=== PATIENT | male | born 1970 | race Caucasian/White ===

== ENCOUNTER 2020-04-25 08:42 | Day surgery (SDC) | payer OTHER, SELFPAY ==
[2020-04-25] VITALS (11 sets, daily range): BP systolic 128–175; BP diastolic 87–102; PULSE 81–105; RESP 13–18; TEMP 36.2–36.9; O2SAT 94–99; BMI 43.0
--- NOTE | 2020-04-25 08:58 | W.ED.MALEGU ---
HPI - Male Genitourinary General: Chief complaint: Urogenital-Male Stated complaint: Knot/Pain on Inner Leg Time Seen by Provider: 04/25/20 08:45 History of Present Illness: HPI Narrative: Patient is a 49-year-old male comes to the ED with scrotal pain and mass. Patient says last night he started feeling some pain down in his scrotum. Today he woke up and he had scrotal mass on the right of testes. Any touch or pressure causes pain. Denies any past scrotal pain or swelling. He rates pain a 9 out of 10 if there is any pressure on right scrotal area. Denies any fever, chills, abdominal pain, bladder or bowel symptoms. Associated symptoms: Deny dysuria, hematuria, nausea or vomiting Review of Systems Const: Denies: fever(s), chills or fatigue Eyes: Denies: change in vision or eye discomfort ENMT: Denies: throat pain, odynophagia, nasal discharge or nasal congestion Card: Denies: chest pain, palpitations, edema, swelling of feet/ankles, dyspnea on exertion or orthopnea Resp: Denies: dyspnea, productive cough or non-productive cough GI: Denies: abdominal pain, nausea, vomiting, diarrhea, constipation or hematochezia : Reports: genital pain (Scrotal pain) and scrotal swelling; Denies: flank pain, difficulty urinating, dysuria or hematuria Musc: Denies: neck pain, back pain or extremity swelling Skin/Breast: Denies: rash or new lesions Neuro: Denies: headache(s), numbness in extremities or weakness in extremities PFS ED PFSH: Medical History No active medical problems Surgical History No significant past surgical history Physical Exam Const: COMMON NORMALS: no acute distress, patient oriented x3, healthy appearing and alert GENERAL APPEARANCE: cooperative and comfortable HENMT: COMMON NORMALS: normocephalic HEAD & SCALP: normocephalic MOUTH: Normal oral and palatal mucosa present THROAT: posterior oropharynx normal and uvula midline Neck/C-Spine: COMMON NORMALS: supple GENERAL: Yes normal visual inspection Resp: COMMON NORMALS: normal respiratory effort, No retractions, No use of accessory muscles and clear to auscultation bilaterally AUSCULTATION: clear to auscultation bilaterally Cardio: COMMON NORMALS: regular rate, regular rhythm, S1 normal heart sound present, S2 normal heart sound present, No gallops present (Cardio), No clicks present (Cardio), No murmurs present (Cardio) and Peripheral pulses 2+ throughout RATE: regular rate RHYTHM: regular rhythm HEART SOUNDS: S1 normal heart sound present and S2 normal heart sound present PERIPHERAL PULSES: Peripheral pulses 2+ throughout GI: COMMON NORMALS: Normal to inspection, nondistended, normoactive bowel sounds present, Soft to palpation, non-tender and no masses PALPATION: Yes Soft to palpation : COMMON NORMALS: Yes no CVA tenderness BLADDER/KIDNEY EXAM: Yes no CVA tenderness PENIS: normal penis SCROTUM: Yes Scrotal tenderness present and Yes scrotal mass Scrotal mass laterality: right (Mass is at right inguinal canal. involves superior aspect of scrotum) erythematous, firm and tender TESTES: Yes testicular lie normal, No testicular swelling, No testicular tenderness and No testicular mass Back/Pelvis: COMMON NORMALS: no CVA tenderness Extremity: COMMON NORMALS: normal to inspection Neuro: COMMON NORMALS: patient oriented x3 and moves all extremities SENSORIUM/ORIENTATION: Yes alert Skin: GENERAL SKIN EXAM: dry skin Course ED course: Dr. Han came down and evaluated patient's abscess and he decided patient will be taken to outpatient surgery today. Consultations: Consultation #1: I contacted Dr. Han about patient case and the ultrasound findings. Ask that he will come down here to the ED to evaluate the abscess and make a decision from there. Consultation #2: I contacted Dr. Waddell first and discussed patient case with him. He took a look at the ultrasound findings and he thought this was a general surgery issue since ultrasound findings did not show any testicular or epididymitis issues. Vital Signs: Vital signs: Vital Signs Temperature 98.5 F 04/25/20 08:48 Pulse Rate 93 04/25/20 11:42 Respiratory Rate 14 04/25/20 11:09 Blood Pressure 136/88 04/25/20 11:42 Pulse Oximetry 96 04/25/20 11:42 MDM - Male MDM Narrative: Medical decision making narrative: Patient is a 49-year-old male comes to the ED with a right inguinal mass and tenderness. Exam shows an erythematous and firm tender mass palpated in the right inguinal canal. Testicles were normal with no tenderness or swelling. White blood cell count 7.5. Patient had a glucose of 440 but rest of CMP was unremarkable. UA showed no signs of any UTI. Ultrasound of scrotum showed abscess in right inguinal canal. I contacted Dr. Han about patient case and he said he was going to come down to the ED to evaluate. After evaluation Dr. Han will take patient to outpatient surgery today straight from the ED. Discussed the plan with patient he understood and agreed. Lab Data: Attestation: I reviewed the patient's lab results. Labs: Lab Results 04/25/20 04/25/20 04/25/20 Range/Units 09:20 09:20 09:40 WBC 7.5 (4.0-10.0) 10^3/ uL RBC 5.25 (4.1-5.3) 10^6/u L Hgb 15.9 (11.7-16.6) g/dL Hct 47.0 (42.0-52.0) % MCV 89.5 (80-94) fL MCH 30.3 (28.0-34.0) pg MCHC 33.8 (30.0-36.0) g/dL RDW 12.2 (12.1-15.1) % Plt Count 187 (130-400) 10^3/c mm MPV 10.3 (7.4-10.4) fL Neut % (Auto) 67.3 % Lymph % (Auto) 22.2 % [place] % (Auto) 8.1 % Eos % (Auto) 1.6 % Baso % (Auto) 0.5 % Neut # (Auto) 5.04 (1.8-7.7) 10^3/u L Lymph # (Auto) 1.7 (0.8-4.8) 10^3/u L [place] # (Auto) 0.6 (0.2-0.9) 10^3/u L Eos # (Auto) 0.1 (0.0-0.8) 10^3/u L Baso # (Auto) 0.0 (0.0-0.1) 10^3/u L Nucleated RBC % (a uto) 0 % Nucleated RBCs # 0.0 /100WBC Sodium 134 L (136-145) mmol/L Potassium 4.2 (3.5-5.1) mmol/L Chloride 98 (98-107) mmol/L Carbon Dioxide 24 (22-29) mmol/L Anion Gap 16.2 (5-19) BUN 11 (6-20) mg/dL Creatinine 0.9 (0.7-1.2) mg/dL GFR Calculation 90.4 (90-130) mL/min Glucose 440 H (65-115) mg/dL Calculated Osmolal ity 296 H (285-295) mOsm/k g Calcium 9.6 (8.5-10.5) mg/dL Total Bilirubin 0.6 (0.15-1.2) mg/dL AST 11 (0-40) U/L ALT 24 (0-41) U/L Alkaline Phosphata se 77 (40-130) IU/L Total Protein 6.8 (6.6-8.7) g/dL Albumin 4.2 (3.5-5.2) g/dL Globulin 2.6 (1.3-4.6) g/dL Lipase 23 (13-60) U/L Urine Color Yellow (Yellow) Urine Appearance Clear (CLEAR) Urine pH 6.5 (5-7) Ur Specific Gravit y 1.010 (1.005-1.030) Urine Protein Neg (Negative) Urine Glucose (UA) 4+ H (Normal) Urine Ketones Negative (Negative) Urine Blood Neg (Negative) Urine Nitrate Negative (Negative) Urine Bilirubin Neg (Negative) Urine Urobilinogen Norm (Negative) mg/dL Ur Leukocyte Lory ase Negative (Negative) Urine RBC None (0-2) /hpf Urine WBC None (0-5) /hpf Ur Squamous Epith Cells None (0-5) /hpf Amorphous Sediment Not Reportable Urine Bacteria None (NONE) /hpf Imaging Data: US: Attestation: I personally reviewed and interpreted this imaging study as follows: Radiologist's impression: [address] [address] Ultrasound Report Signed Patient: Joesph Damian Unit #: [id number] : 1970 Age/Sex: 49 / M ADM Date: 04/25/20 Loc: ER Room/Bed: Attending Dr: Ordering Provider/Ordering MD: Darek Wynn Date of Service: 04/25/20 Procedure(s): US scrotum 60121 Accession Number(s): [id number] Report Number: [id number] WS: [id number] TESTICULAR ULTRASOUND HISTORY: scrotal mass with pain COMPARISON: None available. TECHNIQUE: Real-time and color Doppler imaging or utilized to perform a testicular ultrasound. Right testicle: 4.5 cm x 2.8 cm x 2.7 cm. Normal size and echogenicity. No mass or torsion. Normal color Doppler is present throughout. Systolic and diastolic velocities are both present. No significant hydrocele. Right epididymis: Epididymis is heterogeneous but no increased vascularity. Prominent varicocele on the RIGHT. Left testicle: 4.7 cm x 2.7 cm x 2.2 cm. Normal size and echogenicity. No mass or torsion. Normal color Doppler is present throughout. Systolic and diastolic velocities are both present. No significant hydrocele. Left epididymis: Epididymal cyst versus spermatocele with a maximum diameter of 5 mm. No increased vascularity. Prominent varicosities. There is a complex collection along the RIGHT inguinal canal in the area of concern. There is some increased vascularity present. This area of concern measures 4.3 x 3.2 x 1.9 cm. US/US scrotum [id number] IMPRESSION: 1. Complex fluid collection in the RIGHT inguinal region. Most concerning for developing abscess. Collection measures 4.3 x 3.2 x 1.9 cm. 2. Bilateral varicoceles. 3. No testicular mass. Dictated By: Nelly Wagner DO Signed By: Nelly Wagner DO Signed Date/Time: 04/25/20 1017 DD/ 1011 Discharge Plan Discharge Clinical Impression: Abscess of groin, right Condition: Stable Discharge Orders: Discharge Order (Routine); Ordered 04/25/20 Ordered By: Darek Wynn Discharge Diet: As Directed Discharge Activity: Limit activity as instructed Coding Level of Care Code ED Cardiac Monitor for Chg Fwd Exam Comprehensive
--- NOTE | 2020-04-25 09:09 | US_ITS ---
WS: [id number] TESTICULAR ULTRASOUND HISTORY: scrotal mass with pain COMPARISON: None available. TECHNIQUE: Real-time and color Doppler imaging or utilized to perform a testicular ultrasound. Right testicle: 4.5 cm x 2.8 cm x 2.7 cm. Normal size and echogenicity. No mass or torsion. Normal color Doppler is present throughout. Systolic and diastolic velocities are both present. No significant hydrocele. Right epididymis: Epididymis is heterogeneous but no increased vascularity. Prominent varicocele on the RIGHT. Left testicle: 4.7 cm x 2.7 cm x 2.2 cm. Normal size and echogenicity. No mass or torsion. Normal color Doppler is present throughout. Systolic and diastolic velocities are both present. No significant hydrocele. Left epididymis: Epididymal cyst versus spermatocele with a maximum diameter of 5 mm. No increased va scularity. Prominent varicosities. There is a complex collection along the RIGHT inguinal canal in the area of concern. There is some in creased vascularity present. This area of concern measures 4.3 x 3.2 x 1.9 cm. US/US scrotum [id number] IMPRESSION: 1. Complex fluid collection in the RIGHT inguinal region. Most concerning for developing abscess. Collection measures 4.3 x 3.2 x 1.9 cm. 2. Bilateral varicoceles. 3. No testicular mass.
[2020-04-25 09:28] LABS: Basophils % 0.5 %; Eosinophils # 0.1 10^3/uL (0.0-0.8); Eosinophils % 1.6 %; Hemoglobin 15.9 g/dL (11.7-16.6); Lymphocytes # 1.7 10^3/uL (0.8-4.8); Lymphocytes % 22.2 %; Mean Corpuscular HGB Conc 33.8 g/dL (30.0-36.0); Mean Corpuscular Hemoglobin 30.3 pg (28.0-34.0); Mean Corpuscular Volume 89.5 fL (80-94); Mean Platelet Volume 10.3 fL (7.4-10.4); Monocytes # 0.6 10^3/uL (0.2-0.9); Monocytes % 8.1 %; Neutrophils # 5.04 10^3/uL (1.8-7.7); Neutrophils % 67.3 %; Nucleated Red Blood Cells % 0 %; Platelet Count 187 10^3/cmm (130-400); Red Blood Count 5.25 10^6/uL (4.1-5.3); Red Cell Distribution Width 12.2 % (12.1-15.1); White Blood Count 7.5 10^3/uL (4.0-10.0)
[2020-04-25] MEDS: HYDROmorphone 1 mg/mL INJ 1 mL IVP (09:33)
[2020-04-25] MEDS: sodium chloride 0.9% 1,000 ML 999 ML IV (09:33)
[2020-04-25] MEDS: ondansetron 2 mg/ML SDV 2 mL 4 MG IVP (09:33)
[2020-04-25 09:50] LABS: Alanine Aminotransferase 24 U/L (0-41); Albumin Level 4.2 g/dL (3.5-5.2); Alkaline Phosphatase 77 IU/L (40-130); Anion Gap 16.2 (5-19); Aspartate Amino Transferase 11 U/L (0-40); Blood Urea Nitrogen 11 mg/dL (6-20); Calcium 9.6 mg/dL (8.5-10.5); Carbon Dioxide 24 mmol/L (22-29); Chloride 98 mmol/L (98-107); Globulin 2.6 g/dL (1.3-4.6); Glomerular Filtration Rate 90.4 mL/min (90-130); Glucose 440 mg/dL (65-115); Lipase 23 U/L (13-60); Osmolality Calculated 296 mOsm/kg (285-295); Potassium 4.2 mmol/L (3.5-5.1); Sodium 134 mmol/L (136-145); Total Bilirubin 0.6 mg/dL (0.15-1.2); Total Protein 6.8 g/dL (6.6-8.7)
[2020-04-25 10:04] LABS: Urine Color Yellow (Yellow)
[2020-04-25 10:07] LABS: Add Urine Culture? No; Bilirubin Urine Neg (Negative); Blood Urine Neg (Negative); Glucose Urine UA 4+ (Normal); Ketones Urine Negative (Negative); Leukocyte Esterase Urine Negative (Negative); Nitrate Urine Negative (Negative); Protein Urine Neg (Negative); Urine Appearance Clear (CLEAR); Urobilinogen Urine Norm (Negative); pH Urine 6.5 (5-7)
[2020-04-25] MEDS: insulin regular-human 100 units/1 mL 10 UNIT IVP (11:17)
--- NOTE | 2020-04-25 11:31 | PM.HP ---
Providers/Chief Complaint Admitting Physician: General Surgery Nii Han MD Chief Complaint: Knot/Pain on Inner Leg History of Present Illness Joesph Damian is a 49 year old male who noticed that he was developing some pain on the right side of his upper scrotum several days ago. He denies any history of trauma to the area and denies any history of any problems there. He says he started developing more of a knot which prompted him to come into the emergency department. And any ultrasound revealed an underlying fluid collection that seem to be in the area of the inguinal canal. He denies any fevers or chills. He has not been aware of any drainage, etc., but admits he cannot even see the area due to his body habitus. Dr. Waddell from urology was contacted but thought since the fluid seem to involve the inguinal canal a general surgeon may be more of an appropriate choice for therapy. Review of Systems General: Reports: 10 or more systems reviewed and unremarkable except in HPI and below Const: Denies: fever(s) : Reports: scrotal swelling Medications/Allergies Home Medications Medication Instructions Recorded Confirmed Last Taken Type No Known Home Medications 04/25/20 04/25/20 Unknown History Allergies Allergy/AdvReac Type Severity Reaction Status Date / Time No Known Allergies Allergy Verified 04/25/20 08:47 PFSH Acute PFSH: Medical History (Updated 04/25/20 @ 11:35 by Nii Han MD) No active medical problems Surgical History (Updated 04/25/20 @ 11:35 by Nii Han MD) No significant past surgical history Vitals/I&O/Wt Last Vital Signs Temp 98.5 F 04/25/20 08:48 Pulse 92 04/25/20 11:09 Resp 14 04/25/20 11:09 BP 144/90 04/25/20 11:09 Pulse Ox 98 04/25/20 11:09 Weight last 48 hrs Weight 300 lb Physical Exam Narrative: EXAM NARRATIVE: The patient was encountered in the emergency department. He does not appear to be in any acute distress. The pupils are equal. No carotid bruits are heard. The lungs are clear. The heart is regular. The abdomen is morbidly obese but is soft. The patient has erythema and induration with an overlying superficial open wound on the right side of the scrotum somewhat superiorly. There is no erythema that extends higher that I can see. The patient's very tender in that region. The extremities reveal no edema. Neurologically he appears to be grossly intact. Data : 04/25/20 09:20 04/25/20 09:20 US: Radiologist's impression: Scrotal abscess 04/25/2020 IMPRESSION: 1. Complex fluid collection in the RIGHT inguinal region. Most concerning for developing abscess. Collection measures 4.3 x 3.2 x 1.9 cm. 2. Bilateral varicoceles. 3. No testicular mass. A&P Assessment and plan (1) Scrotal abscess: Clinically the patient appears to have more of an abscess that started in the upper aspect of the right hemiscrotum as opposed to the inguinal canal itself. I told him that regardless I think this area needs to be incised and drained. The procedure was discussed with him in some detail. He seems to understand and is agreeable to proceeding. The patient ate breakfast around 730 this morning. It sounds like it is probably going to be at least a couple hours before we can even get into the operating room, but he will be kept n.p.o. until then. Status: Acute Attestations Medical Necessity Statement*: I told the patient that I think this fluid collection can probably be drained safely as an outpatient. He would like to go home today if at all possible. Coding Level of Care Code Acute Network Design Architect for Becky Noonan Diagnoses Scrotal abscess N49.2
--- NOTE | 2020-04-25 13:56 | ANES.PREANE2 ---
Pre-Anesthetic Assessment Pre-Anesthetic Assessment: Height/Weight: Height 1.78 m Weight 136.078 kg Temp Pulse Resp BP Pulse Ox 97.7 F 95 18 151/96 97 04/25/20 13:55 04/25/20 13:55 04/25/20 13:55 04/25/20 13:55 04/25/20 13:55 Preop Diagnosis: scrotal abscess Proposed Procedure: Operation Date: 04/25/20 14:00 Proposed Procedures p Incision And Drainage scrotal abscess(Not Applicable) - Nii Han MD Was Beta Arelis taken within 24 hours: N/A Last intake: Intake Last Liquid Date 04/18/20 Last Liquid Time 07:30 Last Solid Date 04/25/20 Last Solid Time 07:30 Social: Social History: No alcohol and No tobacco Exam: Pre-Anes Outpt Exam: alert, oriented x 3, clear to auscultation bilaterally and regular rate & rhythm Additional Exam Findings (including area of procedure): Ate a breakfast burrito and coffee at 7:30am. Airway: Submandibular: WNL Cervical ROM: WNL MP: 1 Dentition: Full History/ROS: Other Pulmonary: Pulmonary: None reported CV/HEM: CV/HEM: None reported : : None reported Hepatic: Hepatic: None reported GI: GI: None reported Metabolic: Metabolic: Morbid obesity Musc/skel: Musc/skel: None reported Neuropsych: Neuropsych: None reported Anesthetic Plan: ASA status: 2E Anesthesia: General Risk of > 500 ml blood loss (7ml/kg in children): No PFSH Anesthesia PFSH: Medical History No active medical problems Surgical History No significant past surgical history Data Anesthesia CBC & Chem 7: 04/25/20 09:20 04/25/20 09:20 Other Labs: Laboratory Results - last 48 hr 04/25/20 04/25/20 04/25/20 09:20 09:20 09:40 WBC 7.5 RBC 5.25 Hgb 15.9 Hct 47.0 MCV 89.5 MCH 30.3 MCHC 33.8 RDW 12.2 Plt Count 187 MPV 10.3 Neut % (Auto) 67.3 Lymph % (Auto) 22.2 [place] % (Auto) 8.1 Eos % (Auto) 1.6 Baso % (Auto) 0.5 Neut # (Auto) 5.04 Lymph # (Auto) 1.7 [place] # (Auto) 0.6 Eos # (Auto) 0.1 Baso # (Auto) 0.0 Nucleated RBC % (auto) 0 Nucleated RBCs # 0.0 Sodium 134 L Potassium 4.2 Chloride 98 Carbon Dioxide 24 Anion Gap 16.2 BUN 11 Creatinine 0.9 GFR Calculation 90.4 Glucose 440 H Calculated Osmolality 296 H Calcium 9.6 Total Bilirubin 0.6 AST 11 ALT 24 Alkaline Phosphatase 77 Total Protein 6.8 Albumin 4.2 Globulin 2.6 Lipase 23 Urine Color Yellow Urine Appearance Clear Urine pH 6.5 Ur Specific [place] 1.010 Urine Protein Neg Urine Glucose (UA) 4+ H Urine Ketones Negative Urine Blood Neg Urine Nitrate Negative Urine Bilirubin Neg Urine Urobilinogen Norm Ur Leukocyte Esterase Negative Urine RBC None Urine WBC None Ur Squamous Epith Cells None Amorphous Sediment Not Reportable Urine Bacteria None Cardiac Studies: No Data to Display
[2020-04-25] MEDS: sodium chloride 0.9% 1,000 ML 30 ML IV ×2 (14:22)
--- NOTE | 2020-04-25 14:24 | P.OP_ITS ---
Operative Report Date of procedure: April 25, 2020 Pre-op Diagnosis: scrotal abscess Post-op diagnosis: same Procedure Done: Incision and drainage of right scrotal abscess. Specimens removed/disposition: Aerobic and anaerobic cultures. Surgeon: Nii Han Anesthesia: General Estimated blood loss (mL): 5 Condition: stable Disposition: PACU Procedure: The patient was brought to the operating room and was placed in a rosales pine position on the operating room table. General endotracheal anesthesia was induced. The genitalia were prepped and draped in a sterile fashion. The patient had just begun draining some purulent material from a small opening on the right side of the scrotum superiorly. Both aerobic and anaerobic cultures were taken. The genitalia were then prepped and draped in a sterile fashion. An incision was carried out over the draining wound and a superficial abscess cavity was entered. All of the purulent material was suctioned out and the wound was then extensively irrigated with saline. The wound was finally packed with a strip of half-inch Nu Gauze. A fluff dressing was applied and the patient was taken to the recovery area in stable condition postoperatively.
--- NOTE | 2020-04-25 14:37 | P.PCN_ITS ---
PACU note PACU note: VSS, Good respiratory effort, report to FOREST ENGINEER Post-Anesthesia Exam: awake
--- NOTE | 2020-04-25 14:37 | PM.PACU ---
PACU note PACU note: VSS, Good respiratory effort, report to MIDDLE SCHOOL DIRECTOR Post-Anesthesia Exam: awake
--- NOTE | 2020-04-25 15:09 | ANE.PACU2 ---
Inpatient post-anesthesia follow up: Airway intact: Yes Vital signs: Temperature 97.1 F Pulse Rate [Left] 105 Pulse Rate 83 Respiratory Rate 13 Blood Pressure [Le ft Arm] 175/102 Blood Pressure 128/90 Pulse Oximetry 97 Oxygen Delivery Me thod Room Air Oxygen Flow Rate 6 Fraction of Inspir ed Oxygen Hydration adequate: Yes Nausea and vomiting: No Pain level: 1 Mental status: Baseline
== END 2020-04-25 15:23 | disposition home or self-care (01) ==
LOC: ER 11:35 → OPS 11:43
PROVIDERS: Emergency Provider Physician Assistant; Visit Provider Surgery
PROC: (CPT 55100; principal; 2020-04-25 14:00)
DX: N49.2 Inflammatory disorders of scrotum (principal); E66.01 Morbid (severe) obesity due to excess calories; Z68.41 Body mass index [BMI] 40.0-44.9, adult
CPT/HCPCS: 55100; 12345; 76870; 80053; 81001; 83690; 85025; 87070; 87075; 87077; 87205; 96365; 99283; J0330; J0690; J1100; J1170; J1815; J2405; J2704; J3010; J3490; J7030

== ENCOUNTER 2021-05-06 16:54 | Emergency (ER) | payer OTHER, SELFPAY ==
[2021-05-06 17:40] VITALS: BP 173/108; PULSE 100; RESP 16; TEMP 38.1; O2SAT 90
--- NOTE | 2021-05-06 18:41 | XRR_ITS ---
PROCEDURE INFORMATION: Exam: XR Chest Exam date and time: 05/06/2021 6:41 PM Age: 50 years old Clinical indication: Patient HX: Cough; Blood pressure issues and blood sugar issues since diagnosed with covid 1 week ago TECHNIQUE: Imaging protocol: XR of the chest. Views: 1 view. COMPARISON: No relevant prior studies available. FINDINGS: Lungs: Bibasilar multifocal ground-glass and airspace opacities are noted compatible with pneumonic infiltrates greatest in the left lower lobe. Pulmonary vascularity is within normal limits. Pleural spaces: There is a probable small left pleural effusion. There is no evidence of pneumothorax. Heart/Mediastinum: The heart is enlarged. Bones/joints: No acute abnormality. XR/XR chest 1V portable [id number] IMPRESSION: Bibasilar multifocal ground-glass and airspace opacities are noted compatible with pneumonic infiltrates greatest in the left lower lobe.
[2021-05-06 21:45] VITALS: BP 164/86; PULSE 101; RESP 22; O2SAT 92
--- NOTE | 2021-05-06 21:51 | ECG_ITS ---
[facility] Test Date: 2021-05-06 Pat Name: Joesph Damian Department: Room: Gender: Male German Tutor: : 1970 Requested By: Darek Wynn Order Number: [id number] Olga MD: Mehran Luciano M.D. Measurements Intervals [place] Rate: 96 P: 38 TX: 186 QRS: 8 QRSD: 107 T: 30 QT: 346 QTc: 437 Interpretive Statements SINUS RHYTHM LOW QRS VOLTAGE IN PRECORDIAL LEADS [QRS DEFLECTION < 1.0 mV IN CHEST LEADS] No previous ECG available for comparison Electronically Signed On 05-07-2021 20:16:16 SWAHILI TEACHER by Mehran Luciano M.D. [id number]
--- NOTE | 2021-05-06 21:53 | W.ED.COVID ---
HPI - COVID General: Chief Complaint: COVID symptoms Stated Complaint: COVID 2 WKS AGO;LOW O2;HIGH BLOOD SUGAR(271) Time Seen by Provider: 05/06/21 21:24 Triage information: Has fever, cough or shortness of breath. Exposure to COVID + person last 14 days History of Present Illness: HPI Narrative: Patient is a 50-year-old male comes to the ED with shortness of breath. He states he has a past medical history of diabetes type 2 but he has not started taking any medications for that. Patient tested positive for COVID-19 at [facility] on May 01. He says that he was having upper respiratory symptoms that started around April 24. He initially was having symptoms of a cough some congestion but those have cleared up. His symptoms now for the past week have been worsening shortness of breath, nausea and vomiting and some chest pain that he describes as a chest pressure. Patient checked his oxygen levels at home when he was at around 80% O2 saturation. Patient is not on any supplemental oxygen at home. States he has not been able to keep any food down and can only keep down water. Chest pain he describes as a chest pressure and that worsening chest pain has been going on for approximately a week, but he has been having this kind of chest pressure on and off for the past year. Patient says he has not received the COVID-19 vaccination. COVID 19 common symptoms: positive dyspnea, nausea and vomiting; negative fever(s), chills, non-productive cough, productive cough, fatigue, headache(s), throat pain, nasal congestion or diarrhea COVID 19 other sytmptoms: positive chest pain COVID Results: SARS-CoV-2 Antigen (Rapid) Negative (Negative) 05/06/21 22:55 05/06/21 Review of Systems Const: Denies: fever(s), chills or fatigue Eyes: Denies: change in vision or eye discomfort ENMT: Denies: throat pain, odynophagia, nasal discharge or nasal congestion Card: Reports: chest pain; Denies: palpitations, edema, swelling of feet/ankles, dyspnea on exertion or orthopnea Resp: Reports: dyspnea; Denies: productive cough or non-productive cough GI: Reports: nausea and vomiting; Denies: abdominal pain, diarrhea, constipation or hematochezia : Denies: flank pain, difficulty urinating, dysuria or hematuria Musc: Denies: neck pain, back pain or extremity swelling Skin/Breast: Denies: rash or new lesions Neuro: Denies: headache(s), numbness in extremities or weakness in extremities PFSH ED PFSH: Medical History No active medical problems Surgical History No significant past surgical history Physical Exam Const: COMMON NORMALS: patient oriented x3 and alert GENERAL APPEARANCE: cooperative and comfortable NUTRITIONAL APPEARANCE: obese HENMT: COMMON NORMALS: normocephalic HEAD & SCALP: normocephalic MOUTH: moist mucous membranes abnormal Details: parched THROAT: posterior oropharynx normal and uvula midline Eye: COMMON NORMALS: Equal, round and reactive pupils present PUPIL: Yes Equal, round and reactive pupils present Neck/C-Spine: COMMON NORMALS: supple GENERAL: Yes normal visual inspection Resp: COMMON NORMALS: normal respiratory effort, No retractions and No use of accessory muscles AUSCULTATION: crackles Laterality: bilateral (Crackling heard at bilateral bases) Cardio: COMMON NORMALS: regular rate, regular rhythm, S1 normal heart sound present, S2 normal heart sound present, No gallops present (Cardio), No clicks present (Cardio), No murmurs present (Cardio) and Peripheral pulses 2+ throughout RATE: regular rate RHYTHM: regular rhythm HEART SOUNDS: S1 normal heart sound present and S2 normal heart sound present PERIPHERAL PULSES: Peripheral pulses 2+ throughout GI: COMMON NORMALS: Normal to inspection, nondistended, normoactive bowel sounds present, Soft to palpation, non-tender and no masses PALPATION: Yes Soft to palpation : COMMON NORMALS: Yes no CVA tenderness BLADDER/KIDNEY EXAM: Yes no CVA tenderness Back/Pelvis: COMMON NORMALS: no CVA tenderness Extremity: COMMON NORMALS: normal to inspection Neuro: COMMON NORMALS: patient oriented x3 and moves all extremities SENSORIUM/ORIENTATION: Yes alert Skin: GENERAL SKIN EXAM: dry skin Course Vital Signs: Vital signs: Vital Signs Temperature 100.5 F H 05/06/21 17:40 Pulse Rate 93 05/06/21 22:55 Respiratory Rate 20 H 05/06/21 22:55 Blood Pressure 165/81 05/06/21 22:55 Pulse Oximetry 92 05/06/21 22:55 MDM - COVID MDM Narrative: Medical decision making narrative: Patient is a 50-year-old male who comes to the ED with Covid symptoms. He has had the symptoms now for over 2 weeks. He tested positive for COVID-19 at [facility] on May 01. He is continued to have worsening shortness of breath and today is at home pulse ox was reading in the 80% range. Patient not on any oxygen at home. Patient was put on 3 L of oxygen here in the ED and his O2 sat has been around 92%. The rest of his vitals are stable. Exam of patient shows some crackling at the lower lung solares bilaterally, but rest of exam is benign. CBC unremarkable. Glucose 311, sodium 129, rest of CMP was unremarkable. Corrected sodium levels due to hyperglycemia shows corrected sodium level of 132-134. Troponin negative. D-dimer elevated at 0.88. Chest x-ray showed Bibasilar multifocal ground-glass and airspace opacities. EKG showed normal sinus rhythm with no ST segment elevation or depression seen. ABG showed pH of 7.43. Lactic 1.9. CTA of chest showed bilateral geographic groundglass opacities consistent with COVID-19 pneumonia. no PE seen. CTA chest did note some severe CAD to the LAD. I placed an order with case management for patient to be referred to cardiology for further follow-up due to CAD findings on CTA of chest. Patient was given 1 L of IV fluids, Zofran and insulin here in the ED. Patient's nausea improved and he is able to take p.o. fluids. I discussed patient case with Dr. Spencer and he thinks patient can go home tonight on oxygen and given strict return to ED precautions. Patient diagnosed with post Covid shortness of breath and COVID-19 pneumonia. He sent home with 3 L of O2 continuously, prednisone and budesonide inhaler. He was told to follow-up with his PCP in 5 to 7 days. He was given strict return to ED precautions. Patient understood and agreed with plan. Lab Data: Attestation: I reviewed the patient's lab results. Labs: Lab Results 05/06/21 05/06/21 05/06/21 21:56 22:55 22:55 WBC 6.7 10^3/uL 10^3/ uL (4.0-10.0) RBC 5.32 10^6/uL H 10 ^6/uL (4.1-5.3) Hgb 16.2 g/dL g/dL (11.7-16.6) Hct 46.4 % % (42.0-52.0) MCV 87.2 fl fl (80-94) MCH 30.5 pg pg (28.0-34.0) MCHC 34.9 g/dL g/dL (30.0-36.0) RDW 12.2 % % (12.1-15.1) Plt Count 155 10^3/cmm 10^3 /cmm (130-400) MPV 10.5 fL H fL (7.4-10.4) Neut % (Auto) 78.2 % % Lymph % (Auto) 14.1 % % [place] % (Auto) 6.9 % % Eos % (Auto) 0.0 % % Baso % (Auto) 0.3 % % Neut # (Auto) 5.20 10^3/uL 10^3 /uL (1.8-7.7) Lymph # (Auto) 0.9 10^3/uL 10^3/ uL (0.8-4.8) [place] # (Auto) 0.5 10^3/uL 10^3/ uL (0.2-0.9) Eos # (Auto) 0.0 10^3/uL 10^3/ uL (0.0-0.8) Baso # (Auto) 0.0 10^3/uL 10^3/ uL (0.0-0.1) Nucleated RBC % (a uto) 0 % % Nucleated RBCs # 0.0 /100WBC /100W BC D-Dimer Specimen Type Arterial Sample Site Radial, left ABG pH 7.43 (7.35-7.45) ABG pCO2 30.1 mmHg L mmHg (35-45) ABG pO2 65.5 mmHg L mmHg (80.0-100.0) ABG HCO3 20.0 mmol/L L mmo l/L (22-26) ABG O2 Saturation 94.4 ABG Base Excess -2.9 mmol/L L mmo l/L (-2.0-2.0) Lance Test Pos A-a O2 Gradient 5.9 mmHg mmHg (5-10) Hematocrit 51.0 % % (42-52) Hgb O2 Saturation 93.2 % L % (95-100) Carboxyhemoglobin 1.2 %THgb %THgb (0.4-20.1) Methemoglobin 0.1 % L % (0.4-1.5) Total Hemoglobin 16.6 g/dL g/dL (14-18) Sodium 128.0 mmol/L L mm ol/L 129 mmol/L L mmol /L (131-143) (136-145) Potassium 4.4 mmol/L mmol/L 4.9 mmol/L mmol/L (3.5-5.0) (3.5-5.1) Glucose 343.0 mg/dL H mg/ dL 311 mg/dL H mg/dL (70-115) (65-115) Ionized Calcium 1.2 mmol/L mmol/L (1.1-1.4) O2 Delivery Device Nc O2 Liters/Min 3.0 % % Health Claims Examiner ID Buttr Chloride 89 mmol/L L mmol/ L (98-107) Carbon Dioxide 20 mmol/L L mmol/ L (22-29) Anion Gap 24.9 H (5-19) BUN 21 mg/dL H mg/dL (6-20) Creatinine 0.9 mg/dL mg/dL (0.7-1.2) GFR Calculation 90.1 mL/min mL/mi n (90-130) Calculated Osmolal ity 283 mOsm/kg L mOs m/kg (285-295) Lactic Acid Calcium 8.5 mg/dL mg/dL (8.5-10.5) Ferritin 2086 ng/mL H ng/m L (30-400) Total Bilirubin 0.6 mg/dL mg/dL (0.15-1.2) AST 29 U/L U/L (0-40) ALT 22 U/L U/L (0-41) Alkaline Phosphata se 51 IU/L IU/L (40-130) Troponin T Baselin e Troponin T 120 Min [place] Delta Troponin T NT-Pro-B Natriuret Pep 12 pg/mL pg/mL (0-125) Total Protein 7.0 g/dL g/dL (6.6-8.7) Albumin 3.7 g/dL g/dL (3.5-5.2) Globulin 3.3 g/dL g/dL (1.3-4.6) Procalcitonin 0.28 ng/mL ng/mL (0-0.5) SARS-CoV-2 Ag (Rap id) 05/06/21 05/06/21 05/06/21 22:55 22:55 22:55 WBC RBC Hgb Hct MCV MCH MCHC RDW Plt Count MPV Neut % (Auto) Lymph % (Auto) [place] % (Auto) Eos % (Auto) Baso % (Auto) Neut # (Auto) Lymph # (Auto) [place] # (Auto) Eos # (Auto) Baso # (Auto) Nucleated RBC % (a uto) Nucleated RBCs # D-Dimer 0.88 ug/mIFEU H u g/mIFEU (0-0.59) Specimen Type Sample Site ABG pH ABG pCO2 ABG pO2 ABG HCO3 ABG O2 Saturation ABG Base Excess Lance Test A-a O2 Gradient Hematocrit Hgb O2 Saturation Carboxyhemoglobin Methemoglobin Total Hemoglobin Sodium Potassium Glucose Ionized Calcium O2 Delivery Device O2 Liters/Min Health Claims Examiner ID Chloride Carbon Dioxide Anion Gap BUN Creatinine GFR Calculation Calculated Osmolal ity Lactic Acid 1.9 mmol/L mmol/L (0.5-2.2) Calcium Ferritin Total Bilirubin AST ALT Alkaline Phosphata se Troponin T Baselin e 8 ng/L ng/L (0-15) Troponin T 120 Min [place] Delta Troponin T NT-Pro-B Natriuret Pep Total Protein Albumin Globulin Procalcitonin SARS-CoV-2 Ag (Rap id) 05/06/21 05/07/21 22:55 01:39 WBC RBC Hgb Hct MCV MCH MCHC RDW Plt Count MPV Neut % (Auto) Lymph % (Auto) [place] % (Auto) Eos % (Auto) Baso % (Auto) Neut # (Auto) Lymph # (Auto) [place] # (Auto) Eos # (Auto) Baso # (Auto) Nucleated RBC % (a uto) Nucleated RBCs # D-Dimer Specimen Type Sample Site ABG pH ABG pCO2 ABG pO2 ABG HCO3 ABG O2 Saturation ABG Base Excess Lance Test A-a O2 Gradient Hematocrit Hgb O2 Saturation Carboxyhemoglobin Methemoglobin Total Hemoglobin Sodium Potassium Glucose Ionized Calcium O2 Delivery Device O2 Liters/Min Health Claims Examiner ID Chloride Carbon Dioxide Anion Gap BUN Creatinine GFR Calculation Calculated Osmolal ity Lactic Acid Calcium Ferritin Total Bilirubin AST ALT Alkaline Phosphata se Troponin T Baselin e Troponin T 120 Min [place] 7.87 ng/L ng/L (0-15) Delta Troponin T -0.13 ABS# L ABS# (0-10) NT-Pro-B Natriuret Pep Total Protein Albumin Globulin Procalcitonin SARS-CoV-2 Ag (Rap id) Negative (Negative) Imaging Data: CXR: Attestation: I personally reviewed and interpreted this imaging study as follows: Radiologist's impression: [facility] [id number] ReportSigned Patient: Joesph Damian #: [id number]: 1970Acct#:[id number]/Sex: 50 / MADM Date: 05/06/21Loc: ERRoom/Bed:Attending Dr: Ordering Provider/Ordering MD: Kathryn Spencer MD Date of Service: 05/06/21 Procedure(s): XR chest 1V portable [id number] Accession Number(s): [id number] Report Number: [id number] PROCEDURE INFORMATION: Exam: XR Chest Exam date and time: 05/06/2021 6:41 PM Age: 50 years old Clinical indication: Patient HX: Cough; Blood pressure issues and blood sugar issues since diagnosed with covid 1 week ago TECHNIQUE: Imaging protocol: XR of the chest. Views: 1 view. COMPARISON: No relevant prior studies available. FINDINGS: Lungs: Bibasilar multifocal ground-glass and airspace opacities are noted compatible with pneumonic infiltrates greatest in the left lower lobe. Pulmonary vascularity is within normal limits. Pleural spaces: There is a probable small left pleural effusion. There is no evidence of pneumothorax. Heart/Mediastinum: The heart is enlarged. Bones/joints: No acute abnormality. XR/XR chest 1V portable [id number] IMPRESSION: Bibasilar multifocal ground-glass and airspace opacities are noted compatible with pneumonic infiltrates greatest in the left lower lobe. Dictated By:Tejas Hammigned By:Arlin Hamm Date/Time:05/06/21 1934DD/ 1841 CTA Chest: Attestation: I personally reviewed and interpreted this imaging study as follows: Radiologist's impression: [address] [address] [address] Scan Report Signed Patient: Joesph Damian Unit #: [id number] : 1970 Age/Sex: 50 / M ADM Date: 05/06/21 Loc: ER Room/Bed: Attending Dr: Ordering Provider/Ordering MD: Darek Wynn Date of Service: 05/07/21 Procedure(s): CT angio chest PE protcl [id number] Accession Number(s): [id number] Report Number: [id number] PROCEDURE INFORMATION: Exam: CTA Chest With Contrast Exam date and time: 05/07/2021 12:02 AM Age: 50 years old Clinical indication: Cough and shortness of breath; Patient HX: Cough with SOB. Elevated d dimer. ; Additional info: SOB, elevated d dimer TECHNIQUE: Imaging protocol: Computed tomographic angiography of the chest with contrast. 3D rendering (Not supervised by radiologist): MIP and/or 3D reconstructed images were created by the technologist. Radiation optimization: All CT scans at this facility use at least one of these dose optimization techniques: automated exposure control; mA and/or kV adjustment per patient size (includes targeted exams where dose is matched to clinical indication); or iterative reconstruction. Contrast material: OMNI 350; Contrast volume: 73 ml; Contrast route: INTRAVENOUS (IV); COMPARISON: CR (CHEST, ) 05/06/2021 6:58 PM RADIATION DOSE METRICS: Total DLP (mGy-cm): 861.95 FINDINGS: Pulmonary arteries: No pulmonary embolus or aortic dissection. Aorta: See Pulmonary arteries finding. Lungs: Bilateral geographic ground-glass opacities with some crazy paving and consolidation consistent with moderate bilateral COVID-19 pneumonia versus other pneumonia. Pleural spaces: Unremarkable. No pneumothorax. No pleural effusion. Heart: Severe calcified LAD coronary artery disease. Lymph nodes: Unremarkable. No enlarged lymph nodes. Liver: Severe fatty infiltration of the liver. Spleen: One or more accessory splenules. 15.2 cm moderate splenomegaly. Bones/joints: Unremarkable. No acute fracture. Soft tissues: Unremarkable. Other findings: Examination is limited secondary to motion artifact. CT/CT angio chest PE protcl [id number] IMPRESSION: 1. Bilateral geographic ground-glass opacities with some crazy paving and consolidation consistent with moderate bilateral COVID-19 pneumonia versus other pneumonia. 2. Severe calcified LAD coronary artery disease. 3. No pulmonary embolus or aortic dissection. 4. Severe fatty infiltration of the liver. 5. 15.2 cm moderate splenomegaly. Dictated By: Jeremias Lucas MD Signed By: Jeremias Lucas MD Signed Date/Time: 05/07/21 0135 DD/ 0002 EKG Data: EKG 1: Attestation: I personally reviewed and interpreted this EKG as follows: EKG interpretation date: 05/06/21 Interpretation: Normal sinus rhythm, 96 bpm, no ST segment elevation or depression seen. COVID Results: SARS-CoV-2 Antigen (Rapid) Negative (Negative) 05/06/21 22:55 05/06/21 Discharge Plan Discharge Patient Disposition: Home Clinical Impression: Post-COVID chronic shortness of breath, Pneumonia due to COVID-19 virus Condition: Stable Prescriptions: New prednisone 20 mg tablet 20 mg PO TID 3 Days Qty: 9 RF: 0 budesonide 90 mcg/actuation aerosol powdr breath activated 1 inh inhalation BID 14 Days Qty: 1 RF: 0 ondansetron 4 mg tablet,disintegrating 4 mg PO Q8H PRN (Reason: nausea and vomiting) Qty: 20 RF: 0 No Action Bactrim DS 800-160 mg tablet 1 tab PO DAILY Qty: 15 RF: 0 Discharge Orders: Discharge ED (Routine); Ordered 05/07/21 Ordered By: Darek Wynn Other Ambulatory Orders: DME: Oxygen (Order) Location: None Selected Ordered By: Darek Wynn Discharge Diet: Regular Discharge Activity: Increase activity as tolerated Patient Instructions: Using Oxygen at Home (ED), Dyspnea (ED), COVID-19 (Coronavirus Disease 2019) (ED), Long COVID (ED) Activity Restrictions/Additional Instructions: Follow-up with medical provider as directed in 5 to 7 days for reevaluation. Wear home O2 at 3 L continuously. Take medications as prescribed. Case management will be contacting you as well to set up an appoint with cardiology for further evaluation as well. Return to the ER or your medical provider if condition worsens. Please read and understand discharge instructions. Thank you for choosing [facility] for your healthcare needs today. Please realize this is an emergency room and that we are providing you with a medical screening exam and this may not be complete and all inclusive of all the testing and or work up that you may need to determine your ailment or severity of your illness. It is very important that you follow up as instructed or that you return to the Emergency Department should you have concerns or if your condition changes or worsens in any way. Coding Level of Care Code ED Hose Suspender Cutter for Becky Noonan Exam Comprehensive
[2021-05-06 21:54] VITALS: O2SAT 93
[2021-05-06 22:08] LABS: ABG PCO2 30.1 mmHg (35-45); ABG PH Result 7.43 (7.35-7.45); Alveolar-Arterial Oxygen Gradi 5.9 mmHg (5-10); Base Excess ABG -2.9 mmol/L (-2.0-2.0); Blood Gas Allen Test Pos; Blood Gas Sample Site Radial, left; Blood Gas Sample Type Arterial; Carboxyhemoglobin 1.2 %THgb (0.4-20.1); HGB O2 Sat 93.2 % (95-100); Ionized Calcium Level - ABG 1.2 mmol/L (1.1-1.4); Methemoglobin 0.1 % (0.4-1.5); Oxygen Device NC; Oxygen Saturation ABG 94.4; PO2 ABG 65.5 mmHg (80.0-100.0); Potassium Level - ABG 4.4 mmol/L (3.5-5.0); Total Hemoglobin 16.6 g/dL (14-18)
[2021-05-06 22:55] VITALS: BP 165/81; PULSE 93; RESP 20; O2SAT 92
[2021-05-06 23:01] LABS: Basophils % 0.3 %; Hematocrit 46.4 % (42.0-52.0); Hemoglobin 16.2 g/dL (11.7-16.6); Lymphocytes # 0.9 10^3/uL (0.8-4.8); Lymphocytes % 14.1 %; Mean Corpuscular HGB Conc 34.9 g/dL (30.0-36.0); Mean Corpuscular Hemoglobin 30.5 pg (28.0-34.0); Mean Corpuscular Volume 87.2 fl (80-94); Mean Platelet Volume 10.5 fL (7.4-10.4); Monocytes # 0.5 10^3/uL (0.2-0.9); Monocytes % 6.9 %; Neutrophils % 78.2 %; Nucleated Red Blood Cells % 0 %; Platelet Count 155 10^3/cmm (130-400); Red Blood Count 5.32 10^6/uL (4.1-5.3); Red Cell Distribution Width 12.2 % (12.1-15.1); White Blood Count 6.7 10^3/uL (4.0-10.0)
[2021-05-06 23:15] LABS: D Dimer 0.88 ug/mIFEU (0-0.59)
[2021-05-06 23:18] LABS: SARS Covid-2 Antigen Negative (Negative); Troponin(5th) Baseline 8 ng/L (0-15)
[2021-05-06 23:19] LABS: Lactic Sepsis W/Reflex 1.9 mmol/L (0.5-2.2)
[2021-05-06 23:27] LABS: NT Pro B Type Natriuretic Pept 12 pg/mL (0-125); Procalcitonin 0.28 ng/mL (0-0.5)
[2021-05-06 23:35] LABS: Slide Review Slide Review Perform
[2021-05-06 23:38] LABS: Alanine Aminotransferase 22 U/L (0-41); Albumin Level 3.7 g/dL (3.5-5.2); Alkaline Phosphatase 51 IU/L (40-130); Anion Gap 24.9 (5-19); Aspartate Amino Transferase 29 U/L (0-40); Blood Urea Nitrogen 21 mg/dL (6-20); Calcium 8.5 mg/dL (8.5-10.5); Carbon Dioxide 20 mmol/L (22-29); Chloride 89 mmol/L (98-107); Globulin 3.3 g/dL (1.3-4.6); Glomerular Filtration Rate 90.1 mL/min (90-130); Glucose 311 mg/dL (65-115); Osmolality Calculated 283 mOsm/kg (285-295); Potassium 4.9 mmol/L (3.5-5.1); Sodium 129 mmol/L (136-145); Total Bilirubin 0.6 mg/dL (0.15-1.2)
[2021-05-06] MEDS: sodium chloride 0.9% 1,000 ML 999 ML IV (23:47)
[2021-05-07] MEDS: ondansetron 2 mg/ML SDV 2 mL 4 MG IVP (00:02)
--- NOTE | 2021-05-07 00:02 | CTR_ITS ---
PROCEDURE INFORMATION: Exam: CTA Chest With Contrast Exam date and time: 05/07/2021 12:02 AM Age: 50 years old Clinical indication: Cough and shortness of breath; Patient HX: Cough with SOB. Elevated d dimer. ; Additional info: SOB, elevated d dimer TECHNIQUE: Imaging protocol: Computed tomographic angiography of the chest with contrast. 3D rendering (Not supervised by radiologist): MIP and/or 3D reconstructed images were created by the technologist. Radiation optimization: All CT scans at this facility use at least one of these dose optimization techniques: automated exposure control; mA and/or kV adjustment per patient size (includes targeted exams where dose is matched to clinical indication); or iterative reconstruction. Contrast material: OMNI 350; Contrast volume: 73 ml; Contrast route: INTRAVENOUS (IV); COMPARISON: CR (CHEST, ) 05/06/2021 6:58 PM RADIATION DOSE METRICS: Total DLP (mGy-cm): 861.95 FINDINGS: Pulmonary arteries: No pulmonary embolus or aortic dissection. Aorta: See Pulmonary arteries finding. Lungs: Bilateral geographic ground-glass opacities with some crazy paving and consolidation consistent with moderate bilateral COVID-19 pneumonia versus other pneumonia. Pleural spaces: Unremarkable. No pneumothorax. No pleural effusion. Heart: Severe calcified LAD coronary artery disease. Lymph nodes: Unremarkable. No enlarged lymph nodes. Liver: Severe fatty infiltration of the liver. Spleen: One or more accessory splenules. 15.2 cm moderate splenomegaly. Bones/joints: Unremarkable. No acute fracture. Soft tissues: Unremarkable. Other findings: Examination is limited secondary to motion artifact. CT/CT angio chest PE protcl [id number] IMPRESSION: 1. Bilateral geographic ground-glass opacities with some crazy paving and consolidation consistent with moderate bilateral COVID-19 pneumonia versus other pneumonia. 2. Severe calcified LAD coronary artery disease. 3. No pulmonary embolus or aortic dissection. 4. Severe fatty infiltration of the liver. 5. 15.2 cm moderate splenomegaly.
[2021-05-07] MEDS: iohexol 350 mg/mL 100 mL Btl IV (01:06)
[2021-05-07] MEDS: insulin regular-human 100 units/1 mL 5 UNIT IVP (01:31)
[2021-05-07 01:36] LABS: Ferritin 2086 ng/mL (30-400)
[2021-05-07 02:03] LABS: Troponin 5 2HR 7.87 ng/L (0-15)
[2021-05-07 02:05] LABS: Troponin 5 2HR Delta -0.13 ABS# (0-10)
[2021-05-07] MEDS: metoclopramide 5 mg/mL SDV 2 mL 10 MG IVP (02:35)
[2021-05-07] MEDS: acetaminophen 500 mg Tablet 1000 MG PO (02:35)
[2021-05-07 02:56] VITALS: BP 165/81; PULSE 85; RESP 20; TEMP 37.2; O2SAT 93
[2021-05-07 02:57] VITALS: BP 145/72; PULSE 85; RESP 20; TEMP 37.2; O2SAT 93
--- NOTE | 2021-05-08 13:59 | DCPLANNER ---
Addendum entered by Rolanda Syed 06/09/21 10:32: Patient had a followup appointment scheduled for 06.01.21 with [facility] - appointment cancelled, patient . Original Note: recreational resort manager had message to schedule a follow up appointment for patient with [facility]. recreational resort manager called [facility], spoke with Deborah Boo, gave clinic patients information. A follow up appointment was scheduled for May at 12:[address] Arrgeuin. recreational resort manager called patient to give him the appointment information, patient was in the ER and was being admitted to hospital. recreational resort manager called [facility] on the in patient side, spoke with Rebeca, she put the appointment information on patients discharge information.
== END 2021-05-07 03:25 | disposition home or self-care (01) ==
PROVIDERS: Emergency Medicine; Emergency Provider Physician Assistant
DX: U07.1 COVID-19 (principal); J12.82 Pneumonia due to coronavirus disease 2019; R06.02 Shortness of breath; U09.9 Post COVID-19 condition, unspecified
CPT/HCPCS: 36600; 71045; 71275; 80051; 80053; 82330; 82728; 82805; 83605; 83880; 84145; 84484; 85025; 85378; 87040; 87426; 93005; 96361; 96374; 96375; 99284; J1815; J2405; J2765; J2930; J7030; Q9967

== ENCOUNTER 2021-05-08 09:18 | Emergency (ER) | payer OTHER, SELFPAY ==
[2021-05-08] VITALS (9 sets, daily range): BP systolic 128–149; BP diastolic 83–87; PULSE 75–97; RESP 18–26; TEMP 36.6; O2SAT 86–94; BMI 43.0
--- NOTE | 2021-05-08 09:56 | XRR_ITS ---
PROCEDURE INFORMATION: Exam: XR Chest Exam date and time: 05/08/2021 9:56 AM Age: 50 years old Clinical indication: Condition or disease; Lung condition and disease; Other: Covid +; Additional info: Covid + TECHNIQUE: Imaging protocol: XR of the chest. Views: 1 view. COMPARISON: CR (CHEST, ) 05/06/2021 6:58 PM FINDINGS: Lungs: Interval worsening of bilateral airspace opacities. No large pleural effusion or pneumothorax. Pleural spaces: See Lungs finding. Heart/Mediastinum: Stable cardiomediastinal silhouette. Bones/joints: No acute osseous injury identified. XR/XR chest 1V portable [id number] IMPRESSION: Interval worsening of multifocal pneumonia.
--- NOTE | 2021-05-08 10:09 | ED_ITS ---
Documented by User: DARIA Silverio 05/08/21 10:12 HPI - SOB/Dyspnea General: Chief Complaint: Shortness of Breath/Dyspnea Stated Complaint: LOW O2/HIGH BLOOD SUGAR/POST COVID RELATED Time Seen by Provider: 05/08/21 09:55 History of Present Illness: HPI Narrative: Patient here post 7 days Covid positive. Symptoms started on 24 April. Now with shortness of breath and high blood sugars. Patient states he was told he had a high blood sugar a year ago when he was up in the high 400s when he had to have surgery done and he never got anything done about his diabetes. Then had COVID here recently and is continue with shortness of breath. Said sugars continue to run high patient said he is lost like 30 pounds here recently complains increased thirst increased urination. Just feels weak. Has been on 4 L since seen here in the ER on the second MD elicited complaint: shortness of breath Pertinent past history: other (Untreated diabetes and post Covid) Onset (ago): week(s) Context: recent illness Timing: progressively worsening Severity: severe Exacerbating factors: exertion Relieving factors: oxygen Associated symptoms: Deny abdominal pain, chest pain, extremity pain, fever(s), nausea or vomiting Treatment prior to arrival: oxygen Review of Systems Const: Denies: fever(s), chills or body aches Eyes: Denies: change in vision or blurry vision ENMT: Denies: throat pain or nasal congestion Card: Denies: chest pain or dyspnea on exertion Resp: Reports: dyspnea and non-productive cough; Denies: productive cough GI: Reports: other (Thirsty); Denies: abdominal pain, nausea or vomiting : Reports: urinary frequency and urinary urgency; Denies: difficulty urinating Musc: Denies: extremity pain Skin/Breast: Denies: rash Neuro: Denies: headache(s) Psych: Denies: anxiety or depression Jimbo/Lymph: Denies: easy bruising PFSH ED PFSH: Medical History No active medical problems Surgical History No significant past surgical history Physical Exam Const: COMMON NORMALS: no acute distress, average body habitus and patient oriented x3 HENMT: COMMON NORMALS: normocephalic HEAD & SCALP: normal to inspection and normocephalic FACE & SINUS: normal facial exam Eye: COMMON NORMALS: conjunctivae normal GENERAL EYE: appearance normal, both eyes and all related structures CONJUNCTIVA: Yes conjunctivae normal Neck/C-Spine: COMMON NORMALS: no JVD Chest: COMMONS NORMALS: normal inspection of the chest Resp: COMMON NORMALS: No retractions EFFORT & INSPECTION: Yes abnormal respiratory pattern and Yes tachypneic AUSCULTATION: rales Cardio: COMMON NORMALS: no JVD, regular rate and regular rhythm RATE: regular rate RHYTHM: regular rhythm GI: COMMON NORMALS: Normal to inspection, nondistended, normoactive bowel sounds present Extremity: COMMON NORMALS: normal to inspection and full ROM Neuro: COMMON NORMALS: patient oriented x3 Course Vital Signs: Vital signs: Vital Signs Temperature 97.8 F 05/08/21 09:45 Pulse Rate 97 05/08/21 09:45 Respiratory Rate 18 05/08/21 09:45 Blood Pressure 147/86 05/08/21 09:45 Pulse Oximetry 86 L 05/08/21 09:45 MDM - SOB/Dyspnea Lab Data: Labs: Lab Results 05/08/21 05/08/21 05/08/21 10:13 10:13 10:13 WBC 13.5 10^3/uL H 10 ^3/uL (4.0-10.0) RBC 5.49 10^6/uL H 10 ^6/uL (4.1-5.3) Hgb 16.4 g/dL g/dL (11.7-16.6) Hct 49.8 % % (42.0-52.0) MCV 90.7 fl fl (80-94) MCH 29.9 pg pg (28.0-34.0) MCHC 32.9 g/dL g/dL (30.0-36.0) RDW 12.4 % % (12.1-15.1) Plt Count 243 10^3/cmm 10^3 /cmm (130-400) MPV 10.3 fL fL (7.4-10.4) Neut % (Auto) 88.2 % % Lymph % (Auto) 6.4 % % Sauk % (Auto) 4.5 % % Eos % (Auto) 0.0 % % Baso % (Auto) 0.2 % % Neut # (Auto) 11.89 10^3/uL H 1 0^3/uL (1.8-7.7) Lymph # (Auto) 0.9 10^3/uL 10^3/ uL (0.8-4.8) Sauk # (Auto) 0.6 10^3/uL 10^3/ uL (0.2-0.9) Eos # (Auto) 0.0 10^3/uL 10^3/ uL (0.0-0.8) Baso # (Auto) 0.0 10^3/uL 10^3/ uL (0.0-0.1) Nucleated RBC % (a uto) 0 % % Nucleated RBCs # 0.0 /100WBC /100W BC D-Dimer 1.76 ug/mIFEU H u g/mIFEU (0-0.59) Specimen Type Sample Site ABG pH ABG pCO2 ABG pO2 ABG HCO3 ABG O2 Saturation ABG Base Excess Lance Test A-a O2 Gradient Hematocrit Hgb O2 Saturation Carboxyhemoglobin Methemoglobin Total Hemoglobin Ionized Calcium O2 Delivery Device O2 Liters/Min Shore Working Supervisor ID Sodium 133 mmol/L L mmol /L (136-145) Potassium 4.5 mmol/L mmol/L (3.5-5.1) Chloride 94 mmol/L L mmol/ L (98-107) Carbon Dioxide 10 mmol/L L mmol/ L (22-29) Anion Gap 33.5 H (5-19) BUN 27 mg/dL H mg/dL (6-20) Creatinine 1.1 mg/dL mg/dL (0.7-1.2) GFR Calculation 71.4 mL/min L mL/ min (90-130) Glucose 350 mg/dL H mg/dL (65-115) Calculated Osmolal ity 295 mOsm/kg mOsm/ kg (285-295) Calcium 8.5 mg/dL mg/dL (8.5-10.5) Total Bilirubin 0.5 mg/dL mg/dL (0.15-1.2) AST 26 U/L U/L (0-40) ALT 21 U/L U/L (0-41) Alkaline Phosphata se 62 IU/L IU/L (40-130) Total Protein 7.2 g/dL g/dL (6.6-8.7) Albumin 3.6 g/dL g/dL (3.5-5.2) Globulin 3.6 g/dL g/dL (1.3-4.6) Procalcitonin 0.49 ng/mL ng/mL (0-0.5) Serum Ketones 05/08/21 05/08/21 10:13 10:48 WBC RBC Hgb Hct MCV MCH MCHC RDW Plt Count MPV Neut % (Auto) Lymph % (Auto) Sauk % (Auto) Eos % (Auto) Baso % (Auto) Neut # (Auto) Lymph # (Auto) Sauk # (Auto) Eos # (Auto) Baso # (Auto) Nucleated RBC % (a uto) Nucleated RBCs # D-Dimer Specimen Type Arterial Sample Site Radial, right ABG pH 7.21 L (7.35-7.45) ABG pCO2 18.6 mmHg L* mmHg (35-45) ABG pO2 60.1 mmHg L mmHg (80.0-100.0) ABG HCO3 7.5 mmol/L L mmol /L (22-26) ABG O2 Saturation 90.1 ABG Base Excess -17.9 mmol/L L mm ol/L (-2.0-2.0) Lance Test Pos A-a O2 Gradient 8.7 mmHg mmHg (5-10) Hematocrit 49.3 % % (42-52) Hgb O2 Saturation 88.2 % L % (95-100) Carboxyhemoglobin 1.1 %THgb %THgb (0.4-20.1) Methemoglobin 1.0 % % (0.4-1.5) Total Hemoglobin 16.1 g/dL g/dL (14-18) Ionized Calcium 1.1 mmol/L mmol/L (1.1-1.4) O2 Delivery Device Nc O2 Liters/Min 5.0 % % Shore Working Supervisor ID Rc Sodium 133.0 mmol/L mmol /L (131-143) Potassium 4.1 mmol/L mmol/L (3.5-5.0) Chloride Carbon Dioxide Anion Gap BUN Creatinine GFR Calculation Glucose 354.0 mg/dL H mg/ dL (70-115) Calculated Osmolal ity Calcium Total Bilirubin AST ALT Alkaline Phosphata se Total Protein Albumin Globulin Procalcitonin Serum Ketones Positive H (Negative) Discharge Plan Discharge Prescriptions: No Action ondansetron 4 mg tablet,disintegrating 4 mg PO Q8H PRN (Reason: nausea and vomiting) Qty: 20 RF: 0 aspirin 325 mg Tablet 325 mg PO ONCE RF: 0 zinc 50 mg Tablet 50 mg PO DAILY RF: 0 Vitamin D3 125 mcg (5,000 unit) Tablet 125 mcg PO DAILY RF: 0 prednisone 20 mg tablet 20 mg PO TID RF: 0 budesonide 90 mcg/actuation aerosol powdr breath activated 1 inh inhalation BID RF: 0 Coding Level of Care Code ED Health And Physical Education Professor for Chg Fwd Exam Comprehensive Documented by User: Hope Rangel MD 05/08/21 12:10 HPI - SOB/Dyspnea General: Chief Complaint: Shortness of Breath/Dyspnea Stated Complaint: LOW O2/HIGH BLOOD SUGAR/POST COVID RELATED Time Seen by Provider: 05/08/21 09:55 PFS ED PFSH: Medical History No active medical problems Surgical History No significant past surgical history Course Vital Signs: Vital signs: Vital Signs Temperature 97.8 F 05/08/21 09:45 Pulse Rate 97 05/08/21 09:45 Respiratory Rate 18 05/08/21 09:45 Blood Pressure 147/86 05/08/21 09:45 Pulse Oximetry 86 L 05/08/21 09:45 MDM - SOB/Dyspnea MDM Narrative: Medical decision making narrative: 50-year-old male with history of Covid positive test on 04/2020 presents emergency with hypoxemia glucose. Patient was found to be in DKA today. Patient had potassium of 4.5. Will start on insulin drip. CT negative for any signs of PE. Patient will be mated hospital for hypoxia and respiratory distress and DKA Disposition: ICU Lab Data: Labs: Lab Results 01/03/22 01/03/22 01/03/22 10:13 10:13 10:13 WBC 13.5 10^3/uL H 10 ^3/uL (4.0-10.0) RBC 5.49 10^6/uL H 10 ^6/uL (4.1-5.3) Hgb 16.4 g/dL g/dL (11.7-16.6) Hct 49.8 % % (42.0-52.0) MCV 90.7 fl fl (80-94) MCH 29.9 pg pg (28.0-34.0) MCHC 32.9 g/dL g/dL (30.0-36.0) RDW 12.4 % % (12.1-15.1) Plt Count 243 10^3/cmm 10^3 /cmm (130-400) MPV 10.3 fL fL (7.4-10.4) Neut % (Auto) 88.2 % % Lymph % (Auto) 6.4 % % Sauk % (Auto) 4.5 % % Eos % (Auto) 0.0 % % Baso % (Auto) 0.2 % % Neut # (Auto) 11.89 10^3/uL H 1 0^3/uL (1.8-7.7) Lymph # (Auto) 0.9 10^3/uL 10^3/ uL (0.8-4.8) Sauk # (Auto) 0.6 10^3/uL 10^3/ uL (0.2-0.9) Eos # (Auto) 0.0 10^3/uL 10^3/ uL (0.0-0.8) Baso # (Auto) 0.0 10^3/uL 10^3/ uL (0.0-0.1) Nucleated RBC % (a uto) 0 % % Nucleated RBCs # 0.0 /100WBC /100W BC D-Dimer 1.76 ug/mIFEU H u g/mIFEU (0-0.59) Specimen Type Sample Site ABG pH ABG pCO2 ABG pO2 ABG HCO3 ABG O2 Saturation ABG Base Excess Lance Test A-a O2 Gradient Hematocrit Hgb O2 Saturation Carboxyhemoglobin Methemoglobin Total Hemoglobin Ionized Calcium O2 Delivery Device O2 Liters/Min [employer] Working Supervisor ID Sodium 133 mmol/L L mmol /L (136-145) Potassium 4.5 mmol/L mmol/L (3.5-5.1) Chloride 94 mmol/L L mmol/ L (98-107) Carbon Dioxide 10 mmol/L L mmol/ L (22-29) Anion Gap 33.5 H (5-19) BUN 27 mg/dL H mg/dL (6-20) Creatinine 1.1 mg/dL mg/dL (0.7-1.2) GFR Calculation 71.4 mL/min L mL/ min (90-130) Glucose 350 mg/dL H mg/dL (65-115) Calculated Osmolal ity 295 mOsm/kg mOsm/ kg (285-295) Calcium 8.5 mg/dL mg/dL (8.5-10.5) Total Bilirubin 0.5 mg/dL mg/dL (0.15-1.2) AST 26 U/L U/L (0-40) ALT 21 U/L U/L (0-41) Alkaline Phosphata se 62 IU/L IU/L (40-130) Total Protein 7.2 g/dL g/dL (6.6-8.7) Albumin 3.6 g/dL g/dL (3.5-5.2) Globulin 3.6 g/dL g/dL (1.3-4.6) Procalcitonin 0.49 ng/mL ng/mL (0-0.5) Serum Ketones 05/08/21 05/08/21 10:13 10:48 WBC RBC Hgb Hct MCV MCH MCHC RDW Plt Count MPV Neut % (Auto) Lymph % (Auto) Sauk % (Auto) Eos % (Auto) Baso % (Auto) Neut # (Auto) Lymph # (Auto) Sauk # (Auto) Eos # (Auto) Baso # (Auto) Nucleated RBC % (a uto) Nucleated RBCs # D-Dimer Specimen Type Arterial Sample Site Radial, right ABG pH 7.21 L (7.35-7.45) ABG pCO2 18.6 mmHg L* mmHg (35-45) ABG pO2 60.1 mmHg L mmHg (80.0-100.0) ABG HCO3 7.5 mmol/L L mmol /L (22-26) ABG O2 Saturation 90.1 ABG Base Excess -17.9 mmol/L L mm ol/L (-2.0-2.0) Lance Test Pos A-a O2 Gradient 8.7 mmHg mmHg (5-10) Hematocrit 49.3 % % (42-52) Hgb O2 Saturation 88.2 % L % (95-100) Carboxyhemoglobin 1.1 %THgb %THgb (0.4-20.1) Methemoglobin 1.0 % % (0.4-1.5) Total Hemoglobin 16.1 g/dL g/dL (14-18) Ionized Calcium 1.1 mmol/L mmol/L (1.1-1.4) O2 Delivery Device Nc O2 Liters/Min 5.0 % % Shore Working Supervisor ID Rc Sodium 133.0 mmol/L mmol /L (131-143) Potassium 4.1 mmol/L mmol/L (3.5-5.0) Chloride Carbon Dioxide Anion Gap BUN Creatinine GFR Calculation Glucose 354.0 mg/dL H mg/ dL (70-115) Calculated Osmolal ity Calcium Total Bilirubin AST ALT Alkaline Phosphata se Total Protein Albumin Globulin Procalcitonin Serum Ketones Positive H (Negative) Imaging Data^: Other Imaging: Radiologist's impression: [place] [id number] Scan ReportSigned Patient: Joesph Damian #: [id number]: 1970Acct#:[id number]/Sex: 50 / MADM Date: 05/08/21Loc: ERRoom/Bed:Attending Dr: Ordering Provider/Ordering MD: Cirilo Kaplan , [facility] Date of Service: 05/08/21 Procedure(s): CT angio chest PE protcl 84560 Accession Number(s): [id number] Report Number: [id number] WS: [id number] CT CHEST ANGIOGRAPHY WITH REFORMATS HISTORY: sob, covid, elevated dimer TECHNIQUE: Contiguous axial images are obtained through the chest during arterial injection of intravenous contrast. Images are reconstructed to evaluate the pulmonary arteries. MIP imaging also reviewed. All CT scans at [facility] use at least one of these dose optimization techniques: automated exposure control; mA and/or kV adjustment per patient size (includes targeted exams where dose is matched to clinical indication); or iterative reconstruction. CONTRAST: Omnipaque 350; 95 mL IV. DLP: 1228.31 mGy.cm COMPARISON: 05/07/2021 Poor opacification of the pulmonary arteries. Study is nondiagnostic to exclude pulmonary emboli. There is also motion artifact contributing to the nondiagnostic examination. Pulmonary artery size is equal to the aorta. Thoracic aorta is normal size but poorly visualized otherwise due to motion. Mild enlargement of the heart. No significant RIGHT heart strain. No pericardial or pleural effusions. Mildly prominent lymphoid tissue. There is moderate bilateral multilobar opacifications. Groundglass consolidations and more dense consolidations involving all lobes but greatest in the lower lung solares. Areas of consolidation have increased. No pneumothorax or pneumomediastinum. Hepatic steatosis. No adrenal mass. No osseous abnormalities. CT/CT angio chest PE protcl [id number] IMPRESSION: 1. Nondiagnostic evaluation of the pulmonary arteries. Pulmonary emboli cannot be excluded. 2. Moderate progression of bilateral, multilobar pulmonary opacifications. Consistent with pneumonia and/or pneumonitis and history of Covid 19. 3. Mild cardiomegaly. Dictated By:Nelly Wagner DOSigned By:Nelly Wagner DOSigned Date/Time:05/08/21 1119DD/ 1114 [facility] [place] [address] [id number] ReportSigned Patient: Joesph Damian #: [id number]: 1970Acct#:[id number]/Sex: 50 / MADM Date: 05/08/21Loc: ERRoom/Bed:Attending Dr: Ordering Provider/Ordering MD: Cirilo Kaplan Sr, [facility] Date of Service: 05/08/21 Procedure(s): XR chest 1V portable [id number] Accession Number(s): [id number] Report Number: [id number] PROCEDURE INFORMATION: Exam: XR Chest Exam date and time: 05/08/2021 9:56 AM Age: 50 years old Clinical indication: Condition or disease; Lung condition and disease; Other: Covid +; Additional info: Covid + TECHNIQUE: Imaging protocol: XR of the chest. Views: 1 view. COMPARISON: CR (CHEST, ) 05/06/2021 6:58 PM FINDINGS: Lungs: Interval worsening of bilateral airspace opacities. No large pleural effusion or pneumothorax. Pleural spaces: See Lungs finding. Heart/Mediastinum: Stable cardiomediastinal silhouette. Bones/joints: No acute osseous injury identified. XR/XR chest 1V portable [id number] IMPRESSION: Interval worsening of multifocal pneumonia. Dictated By:Brigida Montanez By:Brigida Montanez Date/Time:05/08/21 1110DD/ 0956 Discharge Plan Discharge Prescriptions: No Action ondansetron 4 mg tablet,disintegrating 4 mg PO Q8H PRN (Reason: nausea and vomiting) Qty: 20 RF: 0 aspirin 325 mg Tablet 325 mg PO ONCE RF: 0 zinc 50 mg Tablet 50 mg PO DAILY RF: 0 Vitamin D3 125 mcg (5,000 unit) Tablet 125 mcg PO DAILY RF: 0 prednisone 20 mg tablet 20 mg PO TID RF: 0 budesonide 90 mcg/actuation aerosol powdr breath activated 1 inh inhalation BID RF: 0 Coding Level of Care Code ED Health And Physical Education Professor for Chg Fwd Exam Comprehensive
[2021-05-08] MEDS: sodium chloride 0.9% 1,000 ML 999 ML IV (10:15)
[2021-05-08 10:26] LABS: Basophils % 0.2 %; Hematocrit 49.8 % (42.0-52.0); Hemoglobin 16.4 g/dL (11.7-16.6); Lymphocytes # 0.9 10^3/uL (0.8-4.8); Lymphocytes % 6.4 %; Mean Corpuscular HGB Conc 32.9 g/dL (30.0-36.0); Mean Corpuscular Hemoglobin 29.9 pg (28.0-34.0); Mean Corpuscular Volume 90.7 fl (80-94); Mean Platelet Volume 10.3 fL (7.4-10.4); Monocytes # 0.6 10^3/uL (0.2-0.9); Monocytes % 4.5 %; Neutrophils # 11.89 10^3/uL (1.8-7.7); Neutrophils % 88.2 %; Nucleated Red Blood Cells % 0 %; Platelet Count 243 10^3/cmm (130-400); Red Blood Count 5.49 10^6/uL (4.1-5.3); Red Cell Distribution Width 12.4 % (12.1-15.1); White Blood Count 13.5 10^3/uL (4.0-10.0)
[2021-05-08 10:44] LABS: D Dimer 1.76 ug/mIFEU (0-0.59)
--- NOTE | 2021-05-08 10:45 | CT_ITS ---
WS: [id number] CT CHEST ANGIOGRAPHY WITH REFORMATS HISTORY: sob, covid, elevated dimer TECHNIQUE: Contiguous axial images are obtained through the chest during arterial injection of intrav enous contrast. Images are reconstructed to evaluate the pulmonary arteries. MIP imaging also reviewe d. All CT scans at [facility] use at least one of these dose optimization techniques: automat ed exposure control; mA and/or kV adjustment per patient size (includes targeted exams where dose is matched to clinical indication); or iterative reconstruction. CONTRAST: Omnipaque 350; 95 mL IV. DLP: 1228.31 mGy.cm COMPARISON: 05/07/2021 Poor opacification of the pulmonary arteries. Study is nondiagnostic to exclude pulmonary emboli. The re is also motion artifact contributing to the nondiagnostic examination. Pulmonary artery size is eq ual to the aorta. Thoracic aorta is normal size but poorly visualized otherwise due to motion. Mild e nlargement of the heart. No significant RIGHT heart strain. No pericardial or pleural effusions. Mild ly prominent lymphoid tissue. There is moderate bilateral multilobar opacifications. Groundglass consolidations and more dense cons olidations involving all lobes but greatest in the lower lung solares. Areas of consolidation have inc reased. No pneumothorax or pneumomediastinum. Hepatic steatosis. No adrenal mass. No osseous abnormalities. CT/CT angio chest PE protcl [id number] IMPRESSION: 1. Nondiagnostic evaluation of the pulmonary arteries. Pulmonary emboli cannot be excluded. 2. Moderate progression of bilateral, multilobar pulmonary opacifications. Con sistent with pneumonia and/or pneumonitis and history of Covid 19. 3. Mild cardiomegaly.
[2021-05-08 10:46] LABS: Ketone (Acetest) Serum Positive (Negative)
[2021-05-08 10:50] LABS: Slide Review Slide Review Perform
[2021-05-08 10:54] LABS: Alanine Aminotransferase 21 U/L (0-41); Albumin Level 3.6 g/dL (3.5-5.2); Alkaline Phosphatase 62 IU/L (40-130); Anion Gap 33.5 (5-19); Aspartate Amino Transferase 26 U/L (0-40); Blood Urea Nitrogen 27 mg/dL (6-20); Calcium 8.5 mg/dL (8.5-10.5); Carbon Dioxide 10 mmol/L (22-29); Chloride 94 mmol/L (98-107); Globulin 3.6 g/dL (1.3-4.6); Glomerular Filtration Rate 71.4 mL/min (90-130); Glucose 350 mg/dL (65-115); Osmolality Calculated 295 mOsm/kg (285-295); Potassium 4.5 mmol/L (3.5-5.1); Sodium 133 mmol/L (136-145); Total Bilirubin 0.5 mg/dL (0.15-1.2); Total Protein 7.2 g/dL (6.6-8.7)
[2021-05-08 10:56] LABS: ABG PH Result 7.21 (7.35-7.45); Alveolar-Arterial Oxygen Gradi 8.7 mmHg (5-10); Arterial Blood Gas Hematocrit 49.3 % (42-52); Base Excess ABG -17.9 mmol/L (-2.0-2.0); Blood Gas Allen Test Pos; Blood Gas Sample Type Arterial; Carboxyhemoglobin 1.1 %THgb (0.4-20.1); HCO3 ABG 7.5 mmol/L (22-26); HGB O2 Sat 88.2 % (95-100); Ionized Calcium Level - ABG 1.1 mmol/L (1.1-1.4); Oxygen Saturation ABG 90.1; PO2 ABG 60.1 mmHg (80.0-100.0); Potassium Level - ABG 4.1 mmol/L (3.5-5.0); Total Hemoglobin 16.1 g/dL (14-18)
[2021-05-08 10:57] LABS: Blood Gas Operator Identificat RC; Blood Gas Sample Site Radial, right; Oxygen Device NC
[2021-05-08 10:58] LABS: Procalcitonin 0.49 ng/mL (0-0.5)
[2021-05-08] MEDS: iohexol 350 mg/mL 100 mL Btl IV ×2 (11:06)
[2021-05-08 11:35] LABS: ABG PCO2 18.6 mmHg (35-45)
[2021-05-08] MEDS: insulin regular-human 250 UNIT in sodium chloride 0.9% 250 ML 10.7 UNIT IV (12:48)
[2021-05-08] MEDS: dexamethasone 10 mg/mL INJ 6 MG IVP (13:02)
[2021-05-08] MEDS: remdesivir 200 MG in sodium chloride 0.9% (100 ml) 60 ML 100 MG IV (13:02)
[2021-05-08 13:56] LABS: Glucose Point of Care 416 mg/dL (70-110)
[2021-05-08 13:56] LABS: Glucose Point of Care 385 mg/dL (70-110)
--- NOTE | 2021-05-08 14:11 | PM.HP ---
Providers/Chief Complaint Chief Complaint: LOW O2/HIGH BLOOD SUGAR/POST COVID RELATED History of Present Illness 50-year-old gentleman with long history of hyperglycemia, not formally diagnosed with diabetes, does not have primary provider, recent COVID-19 infection, He reports 3 weeks ago, now off isolation, but noted hypoxic on presentation, presented with malaise, nausea, vomiting, found to be in DKA. Started on oxygen support. IV hydration, insulin drip. Review of Systems Const: Reports: malaise; Denies: fever(s), chills or body aches Eyes: Denies: change in vision or eye redness ENMT: Denies: throat pain, oral sores or ear or mastoid pain Card: Denies: chest pain, edema, pre-syncope or dyspnea on exertion Resp: Reports: dyspnea; Denies: productive cough, change in phlegm color or hemoptysis GI: Reports: nausea and vomiting; Denies: diarrhea, constipation, hematochezia or melena : Denies: flank pain, difficulty urinating, urinary frequency or hematuria Musc: Denies: back pain, joint swelling or joint redness Skin/Breast: Denies: rash, sores or new lesions Neuro: Denies: headache(s), numbness in extremities, weakness in extremities, dizziness, confusion or seizure-like activity Endo: Denies: polyuria or polydipsia Jimbo/Lymph: Denies: easy bleeding or purpura All/Imm: Denies: urticaria, throat swelling or tongue swelling Medications/Allergies Home Medications Medication Instructions Recorded Confirmed Last Taken Type ondansetron 4 mg PO Q8H PRN #20 tab 05/07/21 05/08/21 Unknown Rx aspirin 325 mg PO ONCE 05/08/21 05/08/21 05/01/21 History budesonide 1 inh INHALATION BID 05/08/21 05/08/21 Unknown History cholecalciferol (vitamin D3) 125 mcg PO DAILY 05/08/21 05/08/21 05/04/21 History [Vitamin D3] prednisone 20 mg PO TID 05/08/21 05/08/21 Unknown History zinc 50 mg PO DAILY 05/08/21 05/08/21 05/04/21 History Allergies Allergy/AdvReac Type Severity Reaction Status Date / Time No Known Allergies Allergy Verified 05/08/21 11:22 PFSH Acute PFSH: Medical History Hyperglycemia No active medical problems Surgical History H/O drainage of abscess No significant past surgical history Family History Other No significant family history Social History Smoking and tobacco status: never smoked Alcohol intake: never Substance/Drug Use: never Lives independently: Yes Household members: spouse Marital status: Vitals/I&O/Wt Last Vital Signs Temp 97.8 F 05/08/21 09:45 Pulse 93 05/08/21 12:46 Resp 22 H 05/08/21 12:46 BP 147/86 05/08/21 09:45 Pulse Ox 93 05/08/21 12:46 05/07/21 05/08/21 05/08/21 22:59 06:59 14:59 Intake Total 11.77 / 11.77 Balance 11.77 / 11.77 Weight last 48 hrs Weight 136.078 kg Physical Exam Const: COMMON NORMALS: no acute distress and patient oriented x3 GENERAL APPEARANCE: ill appearing NUTRITIONAL APPEARANCE: obese HENMT: COMMON NORMALS: oropharynx normal Neck/C-Spine: COMMON NORMALS: no JVD Resp: COMMON NORMALS: normal respiratory effort and clear to auscultation bilaterally AUSCULTATION: clear to auscultation bilaterally Cardio: COMMON NORMALS: no JVD, regular rhythm, S1 normal heart sound present, S2 normal heart sound present and No murmurs present (Cardio) RHYTHM: regular rhythm HEART SOUNDS: S1 normal heart sound present and S2 normal heart sound present GI: COMMON NORMALS: Normal to inspection, nondistended, normoactive bowel sounds present, Soft to palpation and non-tender PALPATION: Yes Soft to palpation Extremity: COMMON NORMALS: no joint enlargement and no pedal edema Neuro: COMMON NORMALS: patient oriented x3 and moves all extremities Skin: COMMON NORMALS: no rashes or lesions noted GENERAL SKIN EXAM: no rashes or lesions noted Data : 05/08/21 10:13 05/08/21 10:13 A&P Assessment and plan (1) DKA (diabetic ketoacidosis): Insulin drip, IV hydration. Received potassium replacement. Recheck chemistry, electrolytes. NPO, sips and chips. Reports protracted hypoglycemia, blood glucose in 300s-400s, not formally diagnosed with diabetes. Discussed with him we will check A1c. Discussed with him in case of advanced diabetes may require starting insulin therapy at discharge. Discussed with him list set up with primary provider. He verbalized understanding and intention to follow through. Status: Acute (2) Pneumonia due to COVID-19 virus: Severe COVID-19 pneumonia. Not normally on oxygen. Oxygen support, Decadron, remdesivir. Lovenox VTE prophylaxis. Status: Acute (3) Hypoxia: Due to above. Status: Acute Additional A&P Information D-dimer elevation: Secondary to COVID-19. Indeterminate CTA for PE. No chest pain or pressure. No hemoptysis. No unilateral lower extremity swelling. Lovenox prophylaxis as above. Recheck level. Case management consult: Needs PCP. Attestations Medical Necessity Statement*: Admission of over 2 midnights or greater needed for assessment of management of DKA, severe COVID-19. Coding Level of Care Code Acute Dental Technology Advisor for raghu Noonan Diagnoses DKA (diabetic ketoacidosis) E11.10 Pneumonia due to COVID-19 virus U07.1; J12.82 Hypoxia R09.02
[2021-05-08 14:55] LABS: Estmated Average Glucose 367; Hemoglobin A1C 14.4 % (4.0-6.0)
[2021-05-08 15:02] LABS: Glucose Point of Care 303 mg/dL (70-110)
[2021-05-08] MEDS: lidocaine 1% 5 ML in potassium chloride premix 100 ML 50 ML IV (15:04)
[2021-05-08] MEDS: potassium chloride ER 20 mEq Tablet 40 MEQ PO (15:04)
[2021-05-08 16:08] LABS: Glucose Point of Care 300 mg/dL (70-110)
[2021-05-08 16:57] LABS: Adenovirus Not Detected (NOT DETECT); Chlamydia Pneumoniae Not Detected (NOT DETECT); Coronavirus 229E,HKU1,NL63,OC4 Not Detected (NOT DETECT); Human Metapneumovirus Not Detected (NOT DETECT); Human Rhinovirus/Enterovirus Not Detected (NOT DETECT); Influenza A Not Detected (NOT DETECT); Influenza A H1 Not Detected (NOT DETECT); Influenza A H1-2009 Not Detected (NOT DETECT); Influenza A H3 Not Detected (NOT DETECT); Influenza B Not Detected (NOT DETECT); Mycoplasma Pneumoniae Not Detected (NOT DETECT); Parainfluenza Virus Type 1 Not Detected (NOT DETECT); Parainfluenza Virus Type 2 Not Detected (NOT DETECT); Parainfluenza Virus Type 3 Not Detected (NOT DETECT); Parainfluenza Virus Type 4 Not Detected (NOT DETECT); Respiratory Syncytial Virus A Not Detected (NOT DETECT); Respiratory Syncytial Virus B Not Detected (NOT DETECT); SARS-COV-2 Detected (NOT DETECT)
[2021-05-08 17:28] LABS: Glucose Point of Care 343 mg/dL (70-110)
[2021-05-08 18:06] LABS: Glucose Point of Care 202 mg/dL (70-110)
[2021-05-08 19:09] LABS: Glucose Point of Care 234 mg/dL (70-110)
[2021-05-08] MEDS: aspirin 325 mg Tablet PO (19:57)
[2021-05-08] MEDS: pantoprazole 40 mg SDV IVP (19:57)
[2021-05-08] MEDS: enoxaparin 40 mg/0.4 mL Syringe SUBCUT (19:57)
[2021-05-08 20:21] LABS: Anion Gap 22.3 (5-19); Blood Urea Nitrogen 24 mg/dL (6-20); Calcium 8.3 mg/dL (8.5-10.5); Carbon Dioxide 14 mmol/L (22-29); Chloride 104 mmol/L (98-107); Glomerular Filtration Rate 103.2 mL/min (90-130); Glucose 199 mg/dL (65-115); Magnesium 2.5 mg/dL (1.7-2.3); Osmolality Calculated 292 mOsm/kg (285-295); Phosphorus 1.2 mg/dL (2.5-4.5); Potassium 4.3 mmol/L (3.5-5.1); Sodium 136 mmol/L (136-145)
[2021-05-08 21:25] LABS: Glucose Point of Care 221 mg/dL (70-110)
[2021-05-08 22:41] LABS: Glucose Point of Care 181 mg/dL (70-110)
[2021-05-08 23:35] LABS: Glucose Point of Care 185 mg/dL (70-110)
[2021-05-08 23:35] LABS: Glucose Point of Care 200 mg/dL (70-110)
[2021-05-08 23:38] LABS: Anion Gap 19.1 (5-19); Blood Urea Nitrogen 25 mg/dL (6-20); Calcium 8.4 mg/dL (8.5-10.5); Carbon Dioxide 15 mmol/L (22-29); Chloride 106 mmol/L (98-107); Glomerular Filtration Rate 103.2 mL/min (90-130); Glucose 164 mg/dL (65-115); Magnesium 2.6 mg/dL (1.7-2.3); Osmolality Calculated 290 mOsm/kg (285-295); Potassium 4.1 mmol/L (3.5-5.1); Sodium 136 mmol/L (136-145)
[2021-05-08] MEDS: dextrose 5%-sod chloride 0.9% 1,000 ML 125 ML IV (23:40)
[2021-05-09] VITALS (10 sets, daily range): BP systolic 107–131; BP diastolic 58–90; PULSE 67–85; RESP 18–28; O2SAT 90–94
[2021-05-09 00:52] LABS: Glucose Point of Care 199 mg/dL (70-110)
[2021-05-09 02:36] LABS: Glucose Point of Care 199 mg/dL (70-110)
[2021-05-09 03:08] LABS: Glucose Point of Care 179 mg/dL (70-110)
[2021-05-09 04:04] LABS: Glucose Point of Care 182 mg/dL (70-110)
[2021-05-09 05:11] LABS: Glucose Point of Care 189 mg/dL (70-110)
[2021-05-09 06:03] LABS: Glucose Point of Care 187 mg/dL (70-110)
[2021-05-09 06:39] LABS: Hematocrit 42.2 % (42.0-52.0); Hemoglobin 14.7 g/dL (11.7-16.6); Mean Corpuscular HGB Conc 34.8 g/dL (30.0-36.0); Mean Corpuscular Hemoglobin 29.9 pg (28.0-34.0); Mean Corpuscular Volume 85.9 fl (80-94); Mean Platelet Volume 10.1 fL (7.4-10.4); Platelet Count 215 10^3/cmm (130-400); Red Blood Count 4.91 10^6/uL (4.1-5.3); Red Cell Distribution Width 12.3 % (12.1-15.1); White Blood Count 9.9 10^3/uL (4.0-10.0)
[2021-05-09 07:02] LABS: C Reactive Protein 90.8 mg/L (0.0-4.9); Magnesium 2.5 mg/dL (1.7-2.3)
[2021-05-09 07:03] LABS: Alanine Aminotransferase 16 U/L (0-41); Albumin Level 2.9 g/dL (3.5-5.2); Alkaline Phosphatase 60 IU/L (40-130); Aspartate Amino Transferase 25 U/L (0-40); Blood Urea Nitrogen 23 mg/dL (6-20); Carbon Dioxide 15 mmol/L (22-29); Chloride 107 mmol/L (98-107); Glomerular Filtration Rate 120.4 mL/min (90-130); Glucose 204 mg/dL (65-115); Osmolality Calculated 290 mOsm/kg (285-295); Sodium 135 mmol/L (136-145); Total Bilirubin 0.4 mg/dL (0.15-1.2); Total Protein 5.9 g/dL (6.6-8.7)
[2021-05-09 07:16] LABS: D Dimer 2.46 ug/mIFEU (0-0.59)
[2021-05-09] MEDS: dextrose 5%-sod chloride 0.9% 1,000 ML 125 ML IV (07:36)
[2021-05-09 07:52] LABS: Slide Review Slide Review Perform
[2021-05-09 07:54] LABS: Lymphocytes 6 %; Platelet Estimate Normal (Normal); Segmented Neutrophils 68 %
[2021-05-09 07:55] LABS: Eosinophils 0 %; Total Cells Counted 100 (0-100)
[2021-05-09 08:24] LABS: Glucose Point of Care 191 mg/dL (70-110)
[2021-05-09 08:47] LABS: Glucose Point of Care 228 mg/dL (70-110)
--- NOTE | 2021-05-09 09:56 | PC.NURSE ---
pts blood glucose @0955; 212
[2021-05-09 10:09] LABS: Anion Gap 15.9 (5-19); Blood Urea Nitrogen 23 mg/dL (6-20); Calcium 7.9 mg/dL (8.5-10.5); Carbon Dioxide 17 mmol/L (22-29); Chloride 108 mmol/L (98-107); Glomerular Filtration Rate 120.4 mL/min (90-130); Glucose 219 mg/dL (65-115); Osmolality Calculated 294 mOsm/kg (285-295); Potassium 3.9 mmol/L (3.5-5.1); Sodium 137 mmol/L (136-145)
--- NOTE | 2021-05-09 11:06 | PM.PN ---
Subjective Subjective: Interval history: He is feeling somewhat better. Nausea abated. He is wanting to try some clear liquids. Breathing comfortable on heated high flow. Denies chest pain or pressure. No headache, nausea vomiting or diarrhea. Very uncomfortable bed. Vitals/I&O/Wt Last Vital Signs Temp 97.8 F 05/08/21 09:45 Pulse 85 05/09/21 07:55 Resp 18 05/09/21 07:55 BP 130/90 05/09/21 05:33 Pulse Ox 90 05/09/21 07:55 05/08/21 05/09/21 05/09/21 22:59 06:59 14:59 Intake Total 63.692 / 75.462 991.667 / 991.667 Balance 63.692 / 75.462 991.667 / 991.667 Weight last 48 hrs Weight 136.078 kg Physical Exam Const: COMMON NORMALS: no acute distress, patient oriented x3 and alert GENERAL APPEARANCE: cooperative NUTRITIONAL APPEARANCE: obese ORIENTATION/CONSCIOUSNESS: Yes awake HENMT: COMMON NORMALS: oropharynx normal Neck/C-Spine: COMMON NORMALS: no JVD Resp: COMMON NORMALS: normal respiratory effort and clear to auscultation bilaterally AUSCULTATION: clear to auscultation bilaterally Cardio: COMMON NORMALS: no JVD, regular rhythm, S1 normal heart sound present, S2 normal heart sound present and No murmurs present (Cardio) RHYTHM: regular rhythm HEART SOUNDS: S1 normal heart sound present and S2 normal heart sound present GI: COMMON NORMALS: Normal to inspection, nondistended, normoactive bowel sounds present, Soft to palpation and non-tender PALPATION: Yes Soft to palpation Extremity: COMMON NORMALS: no joint enlargement and no pedal edema Neuro: COMMON NORMALS: patient oriented x3 and moves all extremities SENSORIUM/ORIENTATION: Yes alert Skin: COMMON NORMALS: no rashes or lesions noted GENERAL SKIN EXAM: no rashes or lesions noted Urinary Catheter Management^: Ziegler: Cath Placed During This Visit: yes Reason for Continuing Indwelling Catheter: Accurate Measurement of Urinary Output in Critically Ill Patients Urinary Catheter Date of Insertion: 05/08/21 Urinary Catheter Time of Insertion: 17:25 Data : 05/09/21 06:25 05/09/21 09:45 A&P Assessment and plan (1) DKA (diabetic ketoacidosis): Gradually improving, gradually improving bicarb, up to 17, anion gap gradual improving as well, down to 15.9. Continue fluid drip for now, but anticipate should be able to transition to subcu insulin soon hopefully sometime this afternoon. He is wanting to try liquid diet, nausea resolved, no vomiting, start consistent carb clear liquids. Additional potassium replacement. Follow-up BMP. Insulin drip, IV hydration. Received potassium replacement. Recheck chemistry, electrolytes. Reports protracted hyperglycemia, blood glucose in 300s-400s, not formally diagnosed with diabetes. A1c 14.4, will need to start with insulin at discharge. Discussed with him needs to set up with primary provider. He verbalized understanding and intention to follow through. Status: Acute (2) Pneumonia due to COVID-19 virus: Severe COVID-19 pneumonia. Significant hypoxia, requiring 75% FiO2. But appears with some improvement from 80%, down to 70% today. Discussed with him he is in severe COVID-19. Not normally on oxygen. Oxygen support with HHS cannula, Decadron, continue remdesivir. Lovenox VTE prophylaxis. No suggestion of superimposed bacterial pneumonia. Recheck CRP, follow oxygenation, if not improving with remdesivir, consider Actemra. Status: Acute (3) Hypoxia: Due to above. Status: Acute Additional A&P Information D-dimer elevation: Secondary to COVID-19. Indeterminate CTA for PE. No chest pain or pressure. No hemoptysis. No unilateral lower extremity swelling. Lovenox prophylaxis as above. Recheck level. Case management consult: Needs PCP. Attestations Medical Necessity Statement*: Continue admission for assessment management of DKA, hypoxic respiratory with severe COVID-19. Coding Level of Care Code Acute Artificial [employer] Supervisor for [facility] Diagnoses DKA (diabetic ketoacidosis) E11.10 Pneumonia due to COVID-19 virus U07.1; J12.82 Hypoxia R09.02
--- NOTE | 2021-05-09 11:44 | PC.NURSE ---
Pt blood glucose checked; 224. Pt appears to becoming more SOB, SATs @88%-90%, respirations at 26, this RN requested RT come back and re-eval
--- NOTE | 2021-05-09 11:47 | XRR_ITS ---
PROCEDURE INFORMATION: Exam: XR Chest Exam date and time: 05/09/2021 11:47 AM Age: 50 years old Clinical indication: Other: Hypoxia TECHNIQUE: Imaging protocol: XR of the chest. Views: 1 view. Total images: 1 COMPARISON: CR XR chest 1V portable [id number] 05/08/2021 10:34 AM FINDINGS: Lungs: Bilateral pulmonary opacities are again noted and appear unchanged. Pleural spaces: Unremarkable. No pleural effusion. No pneumothorax. Heart/Mediastinum: Heart size is stable when compared to the prior exam. Bones/joints: Osseous structures are unchanged from the prior exam. XR/XR chest 1V portable [id number] IMPRESSION: Bilateral pulmonary opacities are again noted and appear unchanged.
--- NOTE | 2021-05-09 11:47 | PC.NURSE ---
Dr. Koroma returning call, order repeat BNP for afternoon and xray now. OK to drop rate on Dextrose 5% from 125mL/h to 30mL/h.
--- NOTE | 2021-05-09 11:54 | PC.NURSE ---
Pharmacy called for new Insulin drip
[2021-05-09 14:50] LABS: Anion Gap 15.7 (5-19); Blood Urea Nitrogen 23 mg/dL (6-20); Calcium 7.9 mg/dL (8.5-10.5); Carbon Dioxide 16 mmol/L (22-29); Chloride 109 mmol/L (98-107); Glomerular Filtration Rate 143.8 mL/min (90-130); Glucose 178 mg/dL (65-115); Osmolality Calculated 292 mOsm/kg (285-295); Potassium 3.7 mmol/L (3.5-5.1); Sodium 137 mmol/L (136-145)
--- NOTE | 2021-05-09 15:13 | NPU.GN ---
ER Inpatient/Hold Group Topic: General Mood of Group
--- NOTE | 2021-05-09 15:18 | PC.NURSE ---
Pts blood glucose @0830; 228
--- NOTE | 2021-05-09 15:18 | PC.NURSE ---
P{ts blood glucose @1410; 184
--- NOTE | 2021-05-09 15:18 | PC.NURSE ---
Pts blood glucose @1515; 171
[2021-05-09] MEDS: dexamethasone 10 mg/mL INJ 6 MG IVP (15:29)
--- NOTE | 2021-05-09 16:28 | PC.NURSE ---
This RN spoke with Dr. Stockton re: pts IV Potassium, Dr. Stockton advised pt currently has bilateral IVs in the AC, each with medication that is not compatible with any other medication. Dr. Stockton gave verbal order for PO Potassium 40mg ONCE. Order entered.
[2021-05-09] MEDS: potassium chloride ER 20 mEq Tablet 40 MEQ PO (16:39)
--- NOTE | 2021-05-09 16:43 | PC.NURSE ---
Pts blood glucose checked'; 150. Pt given 2 jello and a glass of water. No further needs stated
[2021-05-09 18:26] LABS: Blood Urea Nitrogen 22 mg/dL (6-20); Calcium 8.1 mg/dL (8.5-10.5); Carbon Dioxide 15 mmol/L (22-29); Chloride 109 mmol/L (98-107); Glomerular Filtration Rate 120.4 mL/min (90-130); Glucose 153 mg/dL (65-115); Osmolality Calculated 290 mOsm/kg (285-295); Sodium 137 mmol/L (136-145)
--- NOTE | 2021-05-09 18:40 | PC.NURSE ---
Pts blood glucose 151
--- NOTE | 2021-05-09 20:55 | PM.TDS ---
Transfer Summary Providers Date of Admission: 05/08/21 19:13 Date of Discharge: 05/09/21 Attending Provider at Admission: Ford Stockton Attending Provider at Transfer: Ford Stockton Transfering Provider (if different): Eli Mishra Primary Care Provider: none Anticipated Date of Transfer: Anticipated date of transfer: 05/09/21 Receiving Facility & Provider: Receiving Provider: Dr. Quintin Bolaños Receiving facility: [place], [place] Diagnoses at Discharge Discharge Diagnosis (1) Pneumonia due to COVID-19 virus: Status: Acute Permanent problem details: Diagnosed via rapid testing on 05/01/21, confirmed via PCR on 05/09/21 Remdesivir day 1 05/09/2021 Dexamethasone 6mg IV day 1 05/09/2021; had been on prednisone 20 mg tid prior from outpatient prescription Initial ferritin 2085 CRP 90.8 Procal 0.49 (2) DKA (diabetic ketoacidosis): Status: Acute Permanent problem details: secondary to steroids administered for COVID AG as high as 33.5, Initial ABG 7.21/18.6/60/7.5 A1C 14.4 On insulin drip 10 units/hr at time of transfer Qualifiers: Diabetes mellitus complication detail: without coma Diabetes mellitus type: type 2 Qualified Code(s): E11.10 - Type 2 diabetes mellitus with ketoacidosis without coma (3) Hypoxia: Status: Acute Permanent problem details: secondary to COVID pneumonia, requiring 50L flow, 70% FIO2 (4) BMI 40.0-44.9, adult: Status: Acute (5) Diabetes mellitus, type II: Status: Chronic Permanent problem details: new diagnosis 05/2021 Qualifiers: Diabetes mellitus complication status: with hyperglycemia Diabetes mellitus assisted insulin use: without assisted use Qualified Code(s): E11.65 - Type 2 diabetes mellitus with hyperglycemia (6) COVID-19 vaccination not done: Status: Acute Reason for Visit Reason for Visit: LOW O2/HIGH BLOOD SUGAR/POST COVID RELATED Hospital Course Hospital Course Mr. Joesph Damian was originally diagnosed with COVID via rapid test on May 01. He had had symptoms for a week or so, getting around April 24. He presented to the emergency room on May 06 with fever and increasing shortness of breath. Oxygen levels were reported as low and he also had high blood sugars. Oxygen saturation on room air was in the 80s and with 3 L of oxygen saturations improved into the 90s. He was given budesonide, prescription for prednisone, vitamin D, zinc, aspirin and as needed Zofran. Instructions were for close monitoring of worsening symptoms. He presented again to the emergency room on May 08. Oxygen saturations were again noted to be low and blood sugars were also quite high. He had polydipsia and polyuria and reported significant weight loss. Work-up demonstrated evidence of DKA. He was started on insulin drip, increased oxygen and admitted. Initial anion gap was 33.5 with a bicarb of 7 on ABG. pH was 7.21. He received cautious fluids along with insulin and while anion gap has closed to 17, he continues to have CO2 around 15. He also continues to be on steroids for COVID treatment. He has undiagnosed and untreated diabetes reporting that he had had been told he had high blood sugars in the past when he required incision and drainage of an abscess. With the steroids his blood sugars increased significantly. From a respiratory standpoint, he has bilateral infiltrates consistent with Covid pneumonia/pneumonitis. He has required increasing amounts of oxygen currently on 50 L flow and 70% FiO2. Primary risk factors for severe disease of the undiagnosed diabetes, BMI of 43 and unvaccinated status. We have currently no ICU beds available without anticipation of any becoming open soon so attempts were made to arrange transfer to a facility able to provide appropriate level of care. This evening I spoke with [facility] physician Dr. Quintin Bolaños in [facility] distally excepted Mr. Damian for continued care. He has received 1 dose of remdesivir today May 09 and after a couple of days break off of steroids secondary to DKA dexamethasone was also resumed. Of note initial ferritin was 2086, CRP 90.8 and procalcitonin 0.49. A1c was 14.4. He will need prescriptions for diabetic control upon discharge. He does have outpatient appointments arranged to establish new care with a family practice provider as well as referral to see a financial administrative assistant that had been scheduled after initial ED visit (cardiology referral due to indication of coronary artery disease on CT imaging). I have listed the appointments below in the event that they are helpful for patient's follow-up care after discharge. Physical Exam Narrative: EXAM NARRATIVE: Mr Damian is resting in bed with heated high flow oxygen in place. Alert. HR 86. Resp 21. Sats 91% 50L flow, 70% FIO2. Urinary Catheter Management^: Ziegler: Cath Placed During This Visit: yes Reason for Continuing Indwelling Catheter: Accurate Measurement of Urinary Output in Critically Ill Patients Urinary Catheter Date of Insertion: 05/08/21 Urinary Catheter Time of Insertion: 17:25 TS Data Data Completed and Pending: Completed Studies During Hospitalization Category Date Time Status CT angio chest PE protcl [id number] Stat Cat Scan 05/08/21 10:45 Completed XR chest 1V misty ble [id number] Routine Exams 05/09/21 11:47 Completed XR chest 1V misty ble [id number] Stat Exams 05/08/21 09:56 Completed Pending at discharge Category Date Time Status Basic Metabolic P amber Q4H Lab 05/09/21 22:30 Ordered C Reactive Protei n AM LABS Lab 05/10/21 04:00 Ordered Complete Blood Co unt w/Auto AM LABS Lab 05/10/21 04:00 Ordered Complete Blood Co unt w/Auto AM LABS Lab 05/11/21 04:00 Ordered Complete Blood Co unt w/Auto AM LABS Lab 05/12/21 04:00 Ordered Comprehensive Met abolic Panel AM LA BS Lab 05/10/21 04:00 Ordered Comprehensive Met abolic Panel AM LA BS Lab 05/11/21 04:00 Ordered Comprehensive Met abolic Panel AM LA BS Lab 05/12/21 04:00 Ordered D Dimer AM LABS Lab 05/10/21 04:00 Ordered Magnesium AM LABS Lab 05/10/21 04:00 Ordered Phosphorus AM LAB S Lab 05/10/21 04:00 Ordered Laboratory Results - last 72 hr 05/08/21 05/08/21 05/08/21 10:13 10:13 10:13 WBC 13.5 H RBC 5.49 H Hgb 16.4 Hct 49.8 MCV 90.7 MCH 29.9 MCHC 32.9 RDW 12.4 Plt Count 243 MPV 10.3 Neut % (Auto) 88.2 Lymph % (Auto) 6.4 [place] % (Auto) 4.5 Eos % (Auto) 0.0 Baso % (Auto) 0.2 Neut # (Auto) 11.89 H Lymph # (Auto) 0.9 [place] # (Auto) 0.6 Eos # (Auto) 0.0 Baso # (Auto) 0.0 Nucleated RBC % (a uto) 0 Nucleated RBCs # 0.0 D-Dimer 1.76 H Sodium 133 L Potassium 4.5 Chloride 94 L Carbon Dioxide 10 L Anion Gap 33.5 H BUN 27 H Creatinine 1.1 GFR Calculation 71.4 L Glucose 350 H Calculated Osmolal ity 295 Calcium 8.5 Total Bilirubin 0.5 AST 26 ALT 21 Alkaline Phosphata se 62 Total Protein 7.2 Albumin 3.6 Globulin 3.6 Procalcitonin 0.49 05/08/21 05/08/21 05/08/21 10:13 10:13 10:48 Specimen Type Arterial Sample Site Radial, right ABG pH 7.21 L ABG pCO2 18.6 L* ABG pO2 60.1 L ABG HCO3 7.5 L ABG O2 Saturation 90.1 ABG Base Excess -17.9 L Lance Test Pos A-a O2 Gradient 8.7 Hematocrit 49.3 Hgb O2 Saturation 88.2 L Carboxyhemoglobin 1.1 Methemoglobin 1.0 Total Hemoglobin 16.1 Ionized Calcium 1.1 O2 Delivery Device Nc O2 Liters/Min 5.0 Press Cutter ID Rc Sodium 133.0 Potassium 4.1 Glucose 354.0 H Estimat Average Gl ucose 367 Hemoglobin A1c 14.4 H Serum Ketones Positive H 05/08/21 05/08/21 05/08/21 18:01 19:04 19:25 Sodium 136 Potassium 4.3 Chloride 104 Carbon Dioxide 14 L Anion Gap 22.3 H BUN 24 H Creatinine 0.8 GFR Calculation 103.2 Glucose 199 H Calculated Osmolal ity 292 Calcium 8.3 L Phosphorus 1.2 L Magnesium 2.5 H 05/08/21 05/08/21 05/09/21 23:05 23:31 00:50 Sodium 136 Potassium 4.1 Chloride 106 Carbon Dioxide 15 L Anion Gap 19.1 H BUN 25 H Creatinine 0.8 GFR Calculation 103.2 Glucose 164 H POC Glucose 185 H 199 H Calculated Osmolal ity 290 Calcium 8.4 L Phosphorus 1.0 L Magnesium 2.6 H 05/09/21 05/09/21 05/09/21 05:08 06:00 06:25 Phosphorus 2.0 L D Magnesium 2.5 H C-Reactive Protein 90.8 H 05/09/21 05/09/21 05/09/21 06:25 06:25 06:25 WBC 9.9 RBC 4.91 Hgb 14.7 Hct 42.2 MCV 85.9 D MCH 29.9 MCHC 34.8 D RDW 12.3 Plt Count 215 MPV 10.1 D-Dimer 2.46 H Sodium 135 L Potassium 4.0 Chloride 107 Carbon Dioxide 15 L Anion Gap 17.0 BUN 23 H Creatinine 0.7 GFR Calculation 120.4 Glucose 204 H Calculated Osmolal ity 290 Calcium 8.0 L Total Bilirubin 0.4 AST 25 ALT 16 Alkaline Phosphata se 60 Total Protein 5.9 L Albumin 2.9 L Globulin 3.0 05/09/21 05/09/21 05/09/21 06:25 06:55 08:33 Total Counted 100 Atypical Lymphs % 2.0 Segmented Neutroph ils 68 Band Neutrophils 24.0 Lymphocytes (Manua l) 6 Monocytes (Manual) 0.0 Eosinophils (Manua l) 0 Basophils (Manual) 0.0 Platelet Estimate Normal 05/09/21 05/09/21 05/09/21 09:45 14:26 17:44 Sodium 137 137 137 Potassium 3.9 3.7 4.0 Chloride 108 H 109 H 109 H Carbon Dioxide 17 L 16 L 15 L Anion Gap 15.9 15.7 17.0 BUN 23 H 23 H 22 H Creatinine 0.7 0.6 L 0.7 GFR Calculation 120.4 143.8 H 120.4 Glucose 219 H 178 H 153 H Calculated Osmolal ity 294 292 290 Calcium 7.9 L 7.9 L 8.1 L POC blood sugars 05/08/21 05/08/21 05/08/21 12:41 13:50 14:57 POC Glucose 416 H 385 H 303 H 05/08/21 05/08/21 05/08/21 16:03 17:18 18:01 POC Glucose 300 H 343 H 202 H 05/08/21 05/08/21 05/08/21 19:04 20:06 21:23 POC Glucose 234 H 200 H 221 H 05/08/21 05/08/21 05/09/21 22:34 23:31 00:50 POC Glucose 181 H 185 H 199 H 05/09/21 05/09/21 05/09/21 02:33 03:04 04:03 POC Glucose 199 H 179 H 182 H 05/09/21 05/09/21 05/09/21 05:08 06:00 06:55 POC Glucose 189 H 187 H 191 H 05/09/21 05/09/21 08:33 21:47 POC Glucose 228 H 118 H Radiology Impressions: Entire Visit Chest X-Ray 05/08/21 09:56 IMPRESSION: Interval worsening of multifocal pneumonia. Chest CTA 05/08/21 10:45 Poor opacification of the pulmonary arteries. Study is nondiagnostic to exclude pulmonary emboli. There is also motion artifact contributing to the nondiagnostic examination. Pulmonary artery size is equal to the aorta. Thoracic aorta is normal size but poorly visualized otherwise due to motion. Mild enlargement of the heart. No significant RIGHT heart strain. No pericardial or pleural effusions. Mildly prominent lymphoid tissue. There is moderate bilateral multilobar opacifications. Groundglass consolidations and more dense consolidations involving all lobes but greatest in the lower lung solares. Areas of consolidation have increased. No pneumothorax or pneumomediastinum. Hepatic steatosis. No adrenal mass. No osseous abnormalities. IMPRESSION: 1. Nondiagnostic evaluation of the pulmonary arteries. Pulmonary emboli cannot be excluded. 2. Moderate progression of bilateral, multilobar pulmonary opacifications. Consistent with pneumonia and/or pneumonitis and history of Covid 19. 3. Mild cardiomegaly. Chest X-Ray 05/09/21 11:47 IMPRESSION: Bilateral pulmonary opacities are again noted and appear unchanged. PRIOR ED images from 05/06/2021 CXR IMPRESSION: Bibasilar multifocal ground-glass and airspace opacities are noted compatible with pneumonic infiltrates greatest in the left lower lobe. CTA chest FINDINGS: Pulmonary arteries: No pulmonary embolus or aortic dissection. Aorta: See Pulmonary arteries finding. Lungs: Bilateral geographic ground-glass opacities with some crazy paving and consolidation consistent with moderate bilateral COVID-19 pneumonia versus other pneumonia. Pleural spaces: Unremarkable. No pneumothorax. No pleural effusion. Heart: Severe calcified LAD coronary artery disease. Lymph nodes: Unremarkable. No enlarged lymph nodes. Liver: Severe fatty infiltration of the liver. Spleen: One or more accessory splenules. 15.2 cm moderate splenomegaly. Bones/joints: Unremarkable. No acute fracture. Soft tissues: Unremarkable. Other findings: Examination is limited secondary to motion artifact. IMPRESSION: 1. Bilateral geographic ground-glass opacities with some crazy paving and consolidation consistent with moderate bilateral COVID-19 pneumonia versus other pneumonia. 2. Severe calcified LAD coronary artery disease. 3. No pulmonary embolus or aortic dissection. 4. Severe fatty infiltration of the liver. 5. 15.2 cm moderate splenomegaly. PRIOR ED LABS from 05/06/2021 Laboratory Tests 05/06/21 05/06/21 05/06/21 21:56 22:55 22:55 D-Dimer 0.88 H ABG pH 7.43 ABG pCO2 30.1 L ABG pO2 65.5 L ABG HCO3 20.0 L Anion Gap 24.9 H BUN 21 H Creatinine 0.9 Glucose 311 H Ferritin 2086 H Vitals: Last Vital Signs Temp 97.8 F 05/08/21 09:45 Pulse 84 05/09/21 20:20 Resp 18 05/09/21 20:20 BP 131/68 05/09/21 16:22 Pulse Ox 92 05/09/21 20:20 Vital Signs Pulse Pulse Resp Resp BP Pulse Ox Pulse Ox 05/09/21 20:20 84 18 92 05/09/21 17:37 79 18 92 05/09/21 16:22 82 22 H 131/68 94 05/09/21 15:51 83 18 91 05/09/21 11:12 67 18 93 Flow rates and FIO2 05/09/21 20:20 Fraction of Inspir ed Oxygen [Therapy Changed] 70 Oxygen Flow Rate [ Therapy Changed] 50 TS Medications Medications Home Medications (Medications listed as home medications were recently prescribed due to COVID diagnosis) ondansetron 4 mg PO Q8H PRN #20 tab 05/07/21 [Rx Confirmed 05/08/21] aspirin 325 mg PO ONCE 05/08/21 [History Confirmed 05/08/21] budesonide 1 inh INHALATION BID 05/08/21 [History Confirmed 05/08/21] cholecalciferol (vitamin D3) [Vitamin D3] 125 mcg PO DAILY 05/08/21 [History Confirmed 05/08/21] prednisone 20 mg PO TID 05/08/21 [History Confirmed 05/08/21] zinc 50 mg PO DAILY 05/08/21 [History Confirmed 05/08/21] Active Medications Acetaminophen (Acetaminophen 325 Mg Tablet) 650 mg PO Q6H PRN PRN Reason: Mild/Mod Pain Or Temp >/= 101 Albuterol/Ipratropium (Ipratropium-Albuterol 3 Ml Neb) 3 ml INHALATION Q4H PRN PRN Reason: SHORTNESS OF BREATH Aspirin (Aspirin 325 Mg Tablet) 325 mg PO ONCE [facility] Last Admin: 05/08/21 19:57 Dose: 325 mg Benzonatate (Benzonatate 100 Mg Capsule) 200 mg PO TID PRN PRN Reason: COUGH Dexamethasone (Dexamethasone 10 Mg/Ml Inj) 6 mg IVP Q24H [facility] Last Admin: 05/09/21 15:29 Dose: 6 mg Dextrose (Dextrose 50% Syringe 50 Ml) 25 ml IVP ONCE PRN; Protocol PRN Reason: hypoglycemia protocol Dextrose (Dextrose 50% Syringe 50 Ml) 50 ml IVP PRN PRN; Protocol PRN Reason: hypoglycemia protocol Enoxaparin Sodium (Enoxaparin 40 Mg/0.4 Ml Syringe) 40 mg SUBCUT Q24H [facility] Last Admin: 05/08/21 19:57 Dose: 40 mg Glucagon (Glucagon 1 Mg/Ml Inj 1 Ml) 1 mg IM ONCE PRN; Protocol PRN Reason: Adult Acute Hypoglycemia Prot Insulin Human Regular 250 unit (/ Sodium Chloride) 252.5 mls @ 0 mls/hr IV .Q0M [facility]; Protocol Last Titration: 05/08/21 19:08 Dose: 10.4 mls/hr, 10.4 mls/hr Dextrose (D5w) 500 mls @ 100 mls/hr IV ONCE PRN; Protocol PRN Reason: Adult Acute Hypoglycemia Prot Insulin Human Regular 250 unit (/ Sodium Chloride) 252.5 mls @ 0 mls/hr IV .Q0M [facility]; Protocol Dextrose/Sodium Chloride (Dextrose 5%-Sod Chloride 0.9%) 1,000 mls @ 30 mls/hr IV .Q24H [facility] Last Admin: 05/09/21 07:36 Dose: 125 mls/hr Remdesivir 100 mg/ Sodium (Chloride) 80 mls @ 100 mls/hr IV Q24H [facility] Stop: 05/12/21 18:47 this was 1st dose after COVID + confirmation Ondansetron 4 mg PO Q8H PRN PRN Reason: nausea and vomiting Pantoprazole Sodium (Pantoprazole 40 Mg Sdv) 40 mg IVP Q24H [facility] Last Admin: 05/08/21 19:57 Dose: 40 mg Discharge Plan Discharge Patient Disposition: Xfer Short-Term Hosp Condition: Fair Prescriptions: No Action ondansetron 4 mg tablet,disintegrating 4 mg PO Q8H PRN (Reason: nausea and vomiting) Qty: 20 RF: 0 aspirin 325 mg Tablet 325 mg PO ONCE RF: 0 zinc 50 mg Tablet 50 mg PO DAILY RF: 0 Vitamin D3 125 mcg (5,000 unit) Tablet 125 mcg PO DAILY RF: 0 prednisone 20 mg tablet 20 mg PO TID RF: 0 budesonide 90 mcg/actuation aerosol powdr breath activated 1 inh inhalation BID RF: 0 Discharge Orders: Discharge Order (Routine); Ordered 05/09/21 Ordered By: Eli Mishra Referrals: Justina Arreguin MD [Physician] - 06/01/21 12:45 pm Yuly Dowd FNP [Staff Physician] - 05/18/21 10:45 am Activity Restrictions/Additional Instructions: Referral appointments listed above were arranged as new patient appointments for follow up after ED visit 05/06/2021, should patient be discharged prior to those dates. Transfer Attestations Time Spent in Transfer Care*: greater than 30 min Status at Transfer: Cognitive status at transfer: cognitively intact, Behavioral status at transfer: cooperative, Functional status at transfer: other assisted ambulation (due to hypoxemia) Overall status at transfer: patient is not back to baseline Quality Metrics Clinical Quality Measures: During this hospital stay, did patient experience: None Coding Level of Care Code Acute Rn Clinical Coordinator for [facility] Fwd Diagnoses Pneumonia due to COVID-19 virus U07.1; J12.82 DKA (diabetic ketoacidosis) E11.10 Diabetes mellitus complication detail: without coma Diabetes mellitus type: type 2 Hypoxia R09.02 BMI 40.0-44.9, adult Z68.41 Diabetes mellitus, type II E11.65 Diabetes mellitus complication status: with hyperglycemia Diabetes mellitus assisted insulin use: without assisted use COVID-19 vaccination not done Z28.9
[2021-05-09 21:51] LABS: Glucose Point of Care 118 mg/dL (70-110)
[2021-05-09 23:23] LABS: Blood Urea Nitrogen 19 mg/dL (6-20); Calcium 8.2 mg/dL (8.5-10.5); Carbon Dioxide 16 mmol/L (22-29); Chloride 111 mmol/L (98-107); Glomerular Filtration Rate 143.8 mL/min (90-130); Glucose 113 mg/dL (65-115); Osmolality Calculated 289 mOsm/kg (285-295); Sodium 138 mmol/L (136-145)
[2021-05-09 23:29] LABS: Anion Gap 15.5 (5-19); Potassium 4.5 mmol/L (3.5-5.1)
[2021-05-10 08:15] LABS: Glucose Point of Care 150 mg/dL (70-110)
[2021-05-10 08:15] LABS: Glucose Point of Care 171 mg/dL (70-110)
[2021-05-10 08:15] LABS: Glucose Point of Care 224 mg/dL (70-110)
[2021-05-10 08:15] LABS: Glucose Point of Care 212 mg/dL (70-110)
[2021-05-10 08:15] LABS: Glucose Point of Care 184 mg/dL (70-110)
[2021-05-10 08:15] LABS: Glucose Point of Care 151 mg/dL (70-110)
== END 2021-05-09 23:27 ==
LOC: ER 18:05 → ER IP 05-09 14:47
PROVIDERS: Nurse Practitioner Family; Emergency Provider Emergency Medicine; Visit Provider Internal Medicine
DX: E11.10 Type 2 diabetes mellitus with ketoacidosis without coma (principal); R06.02 Shortness of breath; R35.0 Frequency of micturition; U07.1 COVID-19
CPT/HCPCS: 36415; 36416; 36600; 51702; 71045; 71275; 80048; 80051; 80053; 82009; 82330; 82805; 82962; 83036; 83735; 84100; 84145; 85007; 85025; 85378; 86140; 87635; 94664; 96365; 96366; 96367; 96375; 96376; 99291; C9113; J1100; J1650; J1815; J3480; J7030; J7050; Q9967